=== PATIENT | female | born 1930 | race Two or more races ===

== ENCOUNTER 2016-06-08 13:36 | Inpatient (IN) | payer MEDICARE, OTHER ==
[~2016-06-08] VITALS: Ht 152.4 cm; Wt 59.9 kg
--- NOTE | 2016-06-08 13:45 | NUR ---
PT BIB RA S/P POSSIBLE SYNCOPAL EPISODE ACUSING FALL WITH EXTERNAL ROTATION OF L HIP AND SEVERE PAIN IN L HIP WHEN MOVED. UNABLE TO AMBULATE. PEDAL PULSES WNL. RESP EVEN UNLABORED. NO HEAD TRAUMA NOTED. A/OX4. NO PAIN WHEN AT REST. IN ER BED 09 ON MONITOR.
--- NOTE | 2016-06-08 13:51 | NUR ---
EMT AT BEDSIDE FOR EKG
--- NOTE | 2016-06-08 13:53 | NUR ---
CALLED NURSING SUP. FOR TELE BED
[2016-06-08 14:13] LABS: BASOPHILS # (AUTO) 0.1 /CMM (0.0-0.2); EOSINOPHILS # (AUTO) 0.3 /CMM (0.0-0.7); EOSINOPHILS % (AUTO) 5.9 % (0.0-6.0); HEMATOCRIT 33 % (33-45); HEMOGLOBIN 11.4 g/dL (11.5-14.8); LYMPHOCYTES # (AUTO) 0.9 /CMM (0.8-4.8); LYMPHOCYTES % (AUTO) 16.4 % (20.0-44.0); MEAN CORPUSCULAR HEMOGLOBIN 31 PG (26.0-33.0); MEAN CORPUSCULAR HGB CONC 34 g/dl (31.0-36.0); MEAN CORPUSCULAR VOLUME 92 fL (82-100); MONOCYTES # (AUTO) 0.4 /CMM (0.1-1.30); MONOCYTES % (AUTO) 6.5 % (2.0-12.0); NEUTROPHILS % (AUTO) 70.2 % (43.0-81.0); PLATELET COUNT (AUTO) 181 /CMM (150-450); RDW COEFFICIENT OF VARIATION 14.3 (11.5-15.0); RED BLOOD CELL COUNT(AUTO) 3.63 MIL/uL (4.0-5.2); WHITE BLOOD COUNT (AUTO) 5.7 K/uL (4.3-11.0)
[2016-06-08] MEDS ORDERED: ATOR10TA PO (14:23)
[2016-06-08] MEDS ORDERED: AMIO200T2 PO (14:23)
[2016-06-08] MEDS ORDERED: TICA90TA PO (14:23)
[2016-06-08] MEDS ORDERED: PANT40TA2 PO (14:23)
[2016-06-08] MEDS ORDERED: CARV12.52 PO (14:23)
[2016-06-08] MEDS ORDERED: ASPI-991 PO (14:23)
[2016-06-08] MEDS ORDERED: GLIP5TAB13 PO (14:23)
[2016-06-08] MEDS ORDERED: LEVO25TA9 PO (14:23)
[2016-06-08] MEDS ORDERED: SERT50TA12 PO (14:23)
[2016-06-08 14:24] LABS: CALCIUM, SERUM 7.9 mg/dL (8.5-10.1); CREATININE 1.1 mg/dL (0.6-1.3)
[2016-06-08 14:30] LABS: INR 1.1 (0.87-1.13); PROTHROMBIN TIME 11.5 SECS (9.5-12.7)
[2016-06-08] MEDS ORDERED: IV NS 0.9% 500 ML BAG IV ONE (14:30)
[2016-06-08 14:33] LABS: TROPONIN I 0.03 ng/mL (0.00-0.056)
[2016-06-08] MEDS ORDERED: ONDANSETRON HCL/PF 4 MG/2 ML VIAL ONE (14:58)
[2016-06-08] MEDS ORDERED: MORPHINE SULFATE INJ 2 MG/ML DISP.SYRIN ONE (14:58)
[2016-06-08] MEDS ORDERED: IV NS 0.9% 500 ML IV ONE (14:59)
[2016-06-08] MEDS ORDERED: IV SET PRIMARY 1 EA INFUS.SET MC ONE (14:59)
--- NOTE | 2016-06-08 15:01 | NUR ---
[facility] CALLED, GOVERNMENT DOCUMENTS LIBRARIAN, TRANSFERRED CALL TO
--- NOTE | 2016-06-08 15:01 | NUR ---
[facility] PAGED, DR.VU QUEVEDO SPRAYER AUTOMATIC SPRAY MACHINE
--- NOTE | 2016-06-08 15:18 | NUR ---
[facility] REPAGED
--- NOTE | 2016-06-08 15:22 | NUR ---
16fr jones cath placed and urine sample obtained
[2016-06-08 15:27] LABS: APPEARANCE,URINE Clear (CLEAR); BILIRUBIN,URINE Negative (NEGATIVE); BLOOD, URINE Negative Ery/uL (NEGATIVE); COLOR,URINE Dark (YELLOW); KETONES,URINE Trace (NEGATIVE); LEUKOCYTE ESTERASE ,URINE Negative (NEGATIVE); NITRITE, URINE Negative (NEGATIVE); PH,URINE 5.5 (5.0-8.0); PROTEIN,URINE Negative (NEGATIVE); UGLUCOSE Negative (NEGATIVE); UROBILINOGEN,URINE 0.2 EU/dL (0.2)
[2016-06-08] MEDS ORDERED: MORPHINE SULFATE INJ 2 MG/ML DISP.SYRIN IV ONE (15:30)
[2016-06-08] MEDS ORDERED: ONDANSETRON HCL/PF 4 MG/2 ML VIAL IVP ONE (15:30)
[2016-06-08 15:41] LABS: ADD URINE CULTURE NO; BACTERIA,URINE Rare /HPF (None Seen); RBC,URINE 0-2 /HPF (0-2); SQUAMOUS EPITHELIAL CELL,UR Rare /HPF (None Seen); WBC,URINE 0-2 /HPF (0-3)
--- NOTE | 2016-06-08 15:50 | NUR ---
PT TRANSPORTED TO RM 104 IN STABLE CONDITION VIA ACLS PROTOCOL
[2016-06-08 16:00] VITALS: BP 124/80
--- NOTE | 2016-06-08 16:00 | NUR ---
TELE1/BUSINESS DEVELOPMENT DIRECTOR TO TELE1 UNIT - 104 REPORT RECEIVED FROM CHARGE NURSE JARET FOR PT ADMITTED FOR LEFT HIP FRACTURE UNDER THE CARE OF DR. QUEVEDO. PT A/O X 3 ARMENIA SPEAKING, COMPLAINT OF PAIN RATED 7/10, REFUSED TO BE MOVED. ON ROOM AIR SATURATING @ 95%, LUNG SOUNDS CLEAR. ON TELE PACING SINUS RHYTHM, HR 60. IV SITE FLUSHED, PATENT WITH NO S/S OF INFECTION, HL. RODRIGUEZ CATHETER INTACT WITH MINIMAL YELLOW URINE OUTPUT. ADMITTING PROTOCOL ON GOING. FAMILY MEMBERS AT BEDSIDE, HELPING IN HISTORY TAKING. AWAITING FOR ADMITTING ORDERS. CL WITHIN REACHED AND SAFETY MAINTAINED. ON GOING MONITORING.
[2016-06-08] MEDS ORDERED: HYDROCODONE/APAP 5/325MG 1 EACH TABLET PO PRN (16:30)
[2016-06-08] MEDS ORDERED: MAGNESIUM HYDROXIDE 30 ML UDC PO PRN (16:30)
[2016-06-08] MEDS ORDERED: ONDANSETRON HCL/PF 4 MG/2 ML VIAL IVP PRN (16:30)
[2016-06-08] MEDS ORDERED: MORPHINE SULFATE INJ 2 MG/ML DISP.SYRIN IV PRN (16:30)
[2016-06-08] MEDS ORDERED: MAG HYDROX/AL HYDROX/SIMETH 30 ML UDC PO PRN (16:30)
[2016-06-08] MEDS ORDERED: ACETAMINOPHEN 325 MG TABLET PO PRN (16:30)
[2016-06-08] MEDS ORDERED: Z GUARD REMEDY 2 OZ OINT TP PRN (16:30)
[2016-06-08] MEDS ORDERED: ZOLPIDEM TARTRATE 5 MG TABLET PO PRN (16:30)
--- NOTE | 2016-06-08 16:38 | NUR ---
DAUGHTER AT BEDSIDE INSISTING THAT HER MOM TO CONTINUE TAKING CARDIAC MEDS, VERBALIZED " I RATHER DELAY SX THAN RISK MY MOM TO HAVE STROKE" DISCUSSED W/ DR. QUEVEDO FAMILY CONCERN W/ NEW ORDERS LEFT.FACILITATED TO CHANTELLE MARTINEZ RN.
[2016-06-08] MEDS ORDERED: glipiZIDE 5 MG TABLET PO SCH (17:00)
[2016-06-08] MEDS ORDERED: CARVEDILOL 12.5 MG TABLET PO SCH (17:00)
[2016-06-08 17:28] LABS: ANISOCYTOSIS 1+; BAND % (MANUAL) 3 % (0.0-5.0); EOSINOPHILS % (MANUAL) 8 % (0-4); LYMPHOCYTES % (MANUAL) 17 % (16-48); MONOCYTES % (MANUAL) 6 % (0-11.0); NEUTROPHILS % (MANUAL) 66 (42-76); PLATELET ESTIMATE ADEQUATE
[2016-06-08] MEDS ORDERED: TICAGRELOR 90 MG PO SCH (17:30)
--- NOTE | 2016-06-08 18:45 | NUR ---
DR. QUEVEDO NOTIFIED THAT DR. DON WANT TO DO SX TMRW AROUND 0900 AND WANTED CARDIAC CLEARANCE PRIOR TO SX.DAUGHTER NOTIFIED MADE AWARE OF SITUATION,WILL KEEP PT. NPO POSTMIDNIGHT.
--- NOTE | 2016-06-08 19:00 | NUR ---
TELE1/RN AM SHIFT END NOTES NO ACUTE CHANGE OF CONDITION NOTED SINCE PT WAS ADMITTED LATE IN THE AFTERNOON. NEEDS MET. PT ENDORSED TO PM NURSE TO CONTINUE CARE. CL WITHIN REACHED AND SAFETY MAINTAINED.
--- NOTE | 2016-06-08 19:45 | NUR ---
COMMUNITY RESOURCE CONSULTANT NURSE SPOKE TO OSCAR SOLE LEVELER, RE FAMILY REQUEST WANTS PTS TRANSFER TO [facility] , WORKING ON IT .
--- NOTE | 2016-06-08 19:46 | NUR ---
GREENHOUSE STAFF NOTES PER RN DAY SHIFT ,FAMILY WANTED THE PTS TO BE TRANSFER IN [facility] . WANT THE SURGERY TO BE DONE IN [place] AND SO WITH THE CHARGE ENTRY CLERK DR CASTANO TO FOLLOW THE PTS , RELAYED REQUEST TO DR EMY FONSECA , SAID MERARI , DR SIMPSON ALSO WAS INFORM THAT PTS IS GOING TO TRANSFER TO [facility], SPOKE TO DR DON(ORTHO SURGEON )MADE AWARE OF PTS FAMILY REQUEST RE PTS TRANSFER TO [facility] ALSO MERARI WITH IT.
--- NOTE | 2016-06-08 19:50 | NUR ---
RN INITIAL NOTES RECEIVED ENDORSEMENT FROM AM NURSE. PATIENT IN BED, SLEEPING COMFORTABLY. NO ACUTE DISTRESS AND DISCOMFORT. ON ROOM AIR WITH RESPIRATION EVEN AND UNLABORED. TELE SHOWS AV PACING WITH HR OF 66. R FOREARM G20, INTACT AND PATENT. NO C/O PAIN AND DISCOMFORT AT THIS TIME. SWELLING ON L HIP NOTED. PATIENT REPOSITIONED FOR COMFORT. NEEDS ANTICIPATED AND MET. SAFETY AND COMFORT ENSURED. BED ALARM IN PLACE, ROOM CLOSE TO NURSE'S STATION FOR CLOSE VISUAL MONITORING. BED IN LOW AND LOCKED POSITION. CALL LIGHT IN REACH. WILL MONITOR.
[2016-06-08 20:00] VITALS: BP 111/48
--- NOTE | 2016-06-08 22:10 | NUR ---
RN NOTES PATIENT TRANSFERRED TO [facility] PER FAMILY'S REQUESTS. PATIENT LEFT UNIT VIA GURNEY, ACCOMPANIED BY 2 FINANCIAL PLANNER WITH FAMILY AT BEDSIDE. PATIENT LEFT UNIT IN A STABLE CONDITION. NOT IN ANY DISTRESS. WITH F/C IN PLACE AND R FOREARM G22 INTACT. D/C PAPERS SIGNED BY PATIENT'S DTR, FILED IN CHART. BELONGING LIST DONE, IN CHART. PATIENT WITH HOME MEDICATIONS SURRENDERED TO THE PHARMACY, HOWEVER PHARMACY IS CLOSED AND UNABLE TO RETRIEVE PRIOR TO DISCHARGE. INFORMED PATIENT'S DAUGHTER, MITESH, OF THE HOME MEDICATION BEING IN THE PHARMACY; MITESH TO COME BACK TOMORROW AND OBTAIN MEDS FROM PHARMACY, VERBALIZED UNDERSTANDING. REPORT GIVEN TO DANITA FROM [facility]. NOTED.
[2016-06-09] MEDS ORDERED: LEVOTHYROXINE SODIUM 25 MCG TABLET PO SCH (07:30)
[2016-06-09] MEDS ORDERED: PANTOPRAZOLE 40 MG TABLET.DR PO SCH (07:30)
[2016-06-09] MEDS ORDERED: ASPIRIN EC 81 MG TABLET.DR PO SCH (09:00)
[2016-06-09] MEDS ORDERED: SERTRALINE HCL 50 MG TABLET PO SCH (09:00)
[2016-06-09] MEDS ORDERED: ATORVASTATIN 10 MG TABLET PO SCH (09:00)
[2016-06-09] MEDS ORDERED: AMIODARONE HCL 200 MG TABLET PO SCH (09:00)
== END 2016-06-08 23:33 | disposition short-term general hospital (02) | DRG 965 ==
LOC: ER 13:38 → TELE1 15:35
PROVIDERS: ADMIT Family Medicine; ATTEND Family Medicine
DX: S72.142A Displaced intertrochanteric fracture of left femur, initial encounter for closed fracture (principal); S32.592A Other specified fracture of left pubis, initial encounter for closed fracture; W19.XXXA Unspecified fall, initial encounter; K21.9 Gastro-esophageal reflux disease without esophagitis; I25.10 Atherosclerotic heart disease of native coronary artery without angina pectoris; F32.9 Major depressive disorder, single episode, unspecified; E78.5 Hyperlipidemia, unspecified; I10 Essential (primary) hypertension; Z98.61 Coronary angioplasty status; Y93.9 Activity, unspecified; Y92.009 Unspecified place in unspecified non-institutional (private) residence as the place of occurrence of the external cause; Y99.9 Unspecified external cause status
CPT/HCPCS: 36415; 70450-TC; 71010-TC; 72125-TC; 73510-TC; 80048-TC; 81000-TC; 84484-TC; 85025-TC; 85730-TC; 87081-TC; A4606; J2270; J2405; J7040; Z7610

== ENCOUNTER 2016-11-19 19:10 | Inpatient (IN) | payer MEDICARE, OTHER ==
[~2016-11-19] VITALS: Ht 154.9 cm; Wt 54.4 kg
[~2016-11-19 19:10] MED LIST: AMIO200T2 PO; ASPI-991 PO; ATOR10TA PO; CARV12.52 PO; GLIP5TAB13 PO; LEVO25TA9 PO; PANT40TA2 PO; SERT50TA12 PO; TICA90TA PO
[2016-11-19 19:57] LABS: BASOPHILS # (AUTO) 0.2 /CMM (0.0-0.2); EOSINOPHILS % (AUTO) 0.1 % (0.0-6.0); HEMATOCRIT 39 % (33-45); HEMOGLOBIN 12.9 g/dL (11.5-14.8); LYMPHOCYTES # (AUTO) 0.9 /CMM (0.8-4.8); LYMPHOCYTES % (AUTO) 7.8 % (20.0-44.0); MEAN CORPUSCULAR HEMOGLOBIN 32 PG (26.0-33.0); MEAN CORPUSCULAR HGB CONC 33 g/dl (31.0-36.0); MEAN CORPUSCULAR VOLUME 95 fL (82-100); MONOCYTES # (AUTO) 0.6 /CMM (0.1-1.30); MONOCYTES % (AUTO) 5.3 % (2.0-12.0); NEUTROPHILS # (AUTO) 10.3 /CMM (1.8-8.9); NEUTROPHILS % (AUTO) 84.8 % (43.0-81.0); PLATELET COUNT (AUTO) 197 /CMM (150-450); RDW COEFFICIENT OF VARIATION 14.8 (11.5-15.0); RED BLOOD CELL COUNT(AUTO) 4.07 MIL/uL (4.0-5.2)
[2016-11-19] MEDS ORDERED: IV NS 0.9% 500 ML BAG IV ONE (20:00)
--- NOTE | 2016-11-19 20:04 | NUR ---
TELE 309.2
[2016-11-19 20:28] LABS: APPEARANCE,URINE Clear (CLEAR); BILIRUBIN,URINE Negative (NEGATIVE); BLOOD, URINE Trace-lysed Ery/uL (NEGATIVE); COLOR,URINE Yellow (YELLOW); KETONES,URINE Negative (NEGATIVE); LEUKOCYTE ESTERASE ,URINE Trace (NEGATIVE); NITRITE, URINE Negative (NEGATIVE); PH,URINE 5.5 (5.0-8.0); PROTEIN,URINE Negative (NEGATIVE); UGLUCOSE Negative (NEGATIVE)
--- NOTE | 2016-11-19 20:29 | NUR ---
jones inserted; urine sent
[2016-11-19 20:30] LABS: CALCIUM, SERUM 8.2 mg/dL (8.5-10.1); CARBON DIOXIDE 26 mmol/L (21-32); CHLORIDE 94 mmol/L (98-107); CREATININE 1.2 mg/dL (0.6-1.3); GLUCOSE 172 mg/dL (74-106); SODIUM SERUM 133 mmol/L (136-145); UREA NITROGEN, BLOOD 21 mg/dL (7-18)
[2016-11-19 20:31] LABS: POTASSIUM 2.8 mmol/L (3.5-5.1)
[2016-11-19 20:58] LABS: BACTERIA,URINE Many /HPF (None Seen); RBC,URINE 0-2 /HPF (0-2); SQUAMOUS EPITHELIAL CELL,UR Few /HPF (None Seen)
[2016-11-19] MEDS ORDERED: POTASSIUM CHLORIDE 20 MEQ TAB.PRT.SR PO ONE ×2 (21:00→21:16)
--- NOTE | 2016-11-19 21:03 | NUR ---
Pt's Granddaughter translated for pt, c/o generalized weakness, started today, also c/o diarrhea x 1 today. Pt denies dizziness, n/v, CP, SOB, no other complaints, no distress noted.
--- NOTE | 2016-11-19 21:09 | NUR ---
PAGED LOGGING EQUIPMENT MECHANIC PANEL
[2016-11-19] MEDS ORDERED: POTASSIUM CL. PREMIX PERIPHER. 50 ML ONE (21:16)
[2016-11-19] MEDS: POTASSIUM CL. PREMIX PERIPHER. 50 ML IV SCH (21:28)
[2016-11-19 21:32] LABS: ALANINE AMINOTRANSFERASE 213 U/L (12-78); ALBUMIN 2.7 g/dL (3.4-5.0); ALKALINE PHOSPHATASE 119 U/L (46-116); ASPARTATE AMINOTRANSFERASE 221 U/L (15-37); BILIRUBIN,DIRECT 0.5 mg/dL (0.0-0.2); BILIRUBIN,TOTAL 1.1 mg/dL (0.2-1.0)
--- NOTE | 2016-11-19 21:35 | NUR ---
REPORT GIVEN TO LORE MCLAUGHLIN FOR BROOKE
--- NOTE | 2016-11-19 21:36 | NUR ---
TRANSPORTED PT TO TELE BED WITHOUT INCIDENT
[2016-11-19 21:45] VITALS: BP 145/67
--- NOTE | 2016-11-19 21:45 | NUR ---
RN ADMITTING NOTES Pt ARRIVED TO FLOOR VIA GURNEY. GRANDDAUGHTER AT BEDSIDE. Pt IS A/OX3, NORWEGIAN/ESTONIAN SPEAKING. Pt IS AWAKE. NO S/S OF ACUTE DISTRESS OR SOB NOTED. IV ACCESS ON LFA #20G. SAFETY MEASURES IN PLACE. BED LOW, LOCKED, HOB ELEVATED, SIDE RAILS UP, CALL LIGHT AND BEDSIDE TABLE WITHIN REACH. WILL CONTINUE TO MONITOR Pt THROUGHOUT THE NIGHT FOR SAFETY.
[2016-11-19 22:00] VITALS: BP 115/67
[2016-11-19] MEDS ORDERED: MAGNESIUM HYDROXIDE 30 ML UDC PO PRN (22:30)
[2016-11-19] MEDS: CARVEDILOL 12.5 MG TABLET PO SCH (22:30)
[2016-11-19] MEDS ORDERED: ACETAMINOPHEN 325 MG TABLET PO PRN (22:30)
[2016-11-19] MEDS ORDERED: Z GUARD REMEDY 2 OZ OINT TP PRN (22:30)
[2016-11-19] MEDS ORDERED: IV NS 0.9% 1,000 ML IV PRN (22:30)
[2016-11-19] MEDS ORDERED: MAG HYDROX/AL HYDROX/SIMETH 30 ML UDC PO PRN (22:30)
[2016-11-19] MEDS ORDERED: CEFTRIAXONE 1 G VIAL IM SCH (22:30)
[2016-11-19] MEDS ORDERED: ONDANSETRON HCL/PF 4 MG/2 ML VIAL IVP PRN (22:30)
[2016-11-19] MEDS ORDERED: HYDROCODONE/APAP 5/325MG 1 EACH TABLET PO PRN (22:30)
[2016-11-19] MEDS ORDERED: CEFTRIAXONE 1 G VIAL ONE (23:18)
[2016-11-19] MEDS ORDERED: POTASSIUM CL. PREMIX PERIPHER. 150 ML ONE (23:18)
[2016-11-19] MEDS ORDERED: CARVEDILOL 12.5 MG TABLET ONE (23:19)
[2016-11-19] MEDS ORDERED: CEFTRIAXONE 1 G in IV D5W 50 ML IV SCH (23:30)
[2016-11-20] MEDS: POTASSIUM CL. PREMIX PERIPHER. 50 ML IV SCH ×3 (01:52→02:12)
--- NOTE | 2016-11-20 06:40 | NUR ---
RN CLOSING NOTES NO SIGNIFICANT CHANGES NOTED DURING THE SHIFT. ALL NEEDS MET AND ATTENDED TO. NO S/S OF ACUTE DISTRESS OR SOB NOTED DURING THE NIGHT. SAFETY MEASURES IN PLACE. WILL ENDORSE TO DAYSHIFT RN FOR Pt's BROOKE. TELE READING 65 AV PACING.
[2016-11-20 07:06] LABS: BASOPHILS % (AUTO) 0.3 % (0.0-2.0); EOSINOPHILS # (AUTO) 0.1 /CMM (0.0-0.7); EOSINOPHILS % (AUTO) 0.7 % (0.0-6.0); HEMATOCRIT 37 % (33-45); HEMOGLOBIN 12.4 g/dL (11.5-14.8); LYMPHOCYTES % (AUTO) 11.9 % (20.0-44.0); MEAN CORPUSCULAR HEMOGLOBIN 32 PG (26.0-33.0); MEAN CORPUSCULAR HGB CONC 33 g/dl (31.0-36.0); MEAN CORPUSCULAR VOLUME 97 fL (82-100); MONOCYTES % (AUTO) 11.9 % (2.0-12.0); NEUTROPHILS # (AUTO) 6.6 /CMM (1.8-8.9); NEUTROPHILS % (AUTO) 75.2 % (43.0-81.0); PLATELET COUNT (AUTO) 176 /CMM (150-450); RED BLOOD CELL COUNT(AUTO) 3.85 MIL/uL (4.0-5.2); WHITE BLOOD COUNT (AUTO) 8.8 K/uL (4.3-11.0)
[2016-11-20 07:29] LABS: ALANINE AMINOTRANSFERASE 195 U/L (12-78); ALBUMIN 2.4 g/dL (3.4-5.0); ALKALINE PHOSPHATASE 111 U/L (46-116); ASPARTATE AMINOTRANSFERASE 173 U/L (15-37); BILIRUBIN,TOTAL 0.7 mg/dL (0.2-1.0); CALCIUM, SERUM 8.1 mg/dL (8.5-10.1); CARBON DIOXIDE 29 mmol/L (21-32); CHLORIDE 100 mmol/L (98-107); GLUCOSE 146 mg/dL (74-106); MAGNESIUM 1.7 mg/dL (1.8-2.4); PHOSPHORUS 2.2 mg/dL (2.5-4.9); SODIUM SERUM 136 mmol/L (136-145); TOTAL PROTEIN, SERUM 6.4 g/dL (6.4-8.2); UREA NITROGEN, BLOOD 20 mg/dL (7-18)
--- NOTE | 2016-11-20 07:30 | NUR ---
AM RN NOTE Received patient sleeping comfortably in her bed, no acute distress noted. No SOB noted resp even and non-labored. IV sites intact and patent. Bed in low locked position. Will continue to monitor.
[2016-11-20 07:35] LABS: CHOLESTEROL 85 mg/dL (<200); HDL CHOLESTEROL 31 mg/dL (40-60); LDL 36 mg/dL (0-99); THYROID STIMULATING HORMONE 2.576 uIU/mL (0.358-3.74); TRIGLYCERIDES 85 mg/dL (30-150)
[2016-11-20 08:00] VITALS: BP 108/59
[2016-11-20] MEDS ORDERED: HEPARIN SODIUM, PORCINE 5000 UNITS/1 ML VIAL SQ SCH (09:00)
[2016-11-20] MEDS ORDERED: ATORVASTATIN 10 MG TABLET PO SCH (09:00)
[2016-11-20] MEDS ORDERED: AMIODARONE HCL 200 MG TABLET PO SCH (09:00)
[2016-11-20] MEDS: ASPIRIN EC 81 MG TABLET.DR PO SCH (09:02)
[2016-11-20] MEDS: SERTRALINE HCL 50 MG TABLET PO SCH (09:02)
[2016-11-20] MEDS: glipiZIDE 5 MG TABLET PO SCH ×2 (09:02→16:18)
[2016-11-20] MEDS: LEVOTHYROXINE SODIUM 25 MCG TABLET PO SCH (09:03)
[2016-11-20] MEDS: PANTOPRAZOLE 40 MG TABLET.DR PO SCH (09:03)
[2016-11-20] MEDS: CARVEDILOL 12.5 MG TABLET PO SCH ×2 (09:04→16:20)
[2016-11-20] MEDS ORDERED: Magnesium 1GM/D5W 100ML PREMIX PIGGYBACK IV ONE (09:30)
[2016-11-20] MEDS: BRILINTA 90 MG PO SCH (10:12)
--- NOTE | 2016-11-20 12:30 | NUR ---
AM RN NOTE D/C'd tele per Dr. Morrison (Marketing Automation Manager) and current status med-surg. Pt denies any pain or discomfort at this time. F/C intact and patent, draining yellow colored urine.
[2016-11-20 13:06] VITALS: BP 115/62
[2016-11-20] MEDS ORDERED: K PHOS NEUTRAL 250 MG TABLET PO ONE (15:00)
[2016-11-20] MEDS: TICAGRELOR 90 MG TABLET PO SCH (16:20)
[2016-11-20 16:28] VITALS: BP 135/69
--- NOTE | 2016-11-20 18:30 | NUR ---
AM RN NOTE Patient resting in her bed, no acute distress noted. IV sites intact and patent. Will endorse care to next shift.
--- NOTE | 2016-11-20 19:30 | NUR ---
MS RN NOTE RECEIVED PATIENT AWAKE AND ALERT IN BED. NO PAIN OR DISTRESS NOTED. IV SITE INTACT, WITH NO REDNESS OR INFILTRATION NOTED. SIDE RAILS UP, CALL LIGHT WITHIN REACH. WILL CONTINUE TO MONITOR.
[2016-11-20 20:00] VITALS: BP 132/65
[2016-11-20 22:00] VITALS: BP 132/65
[2016-11-20] MEDS ORDERED: CEFTRIAXONE 1 G in IV D5W 50 ML IV SCH (23:00)
--- NOTE | 2016-11-21 06:21 | NUR ---
MS RN NOTE PATIENT STABLE. NO DISTRESS NOTED. IV SITE INTACT, WITH FLUIDS RUNNING ORDERED. ALL NEEDS MET AND ATTENDED TO. WILL ENDORSE TO DAY SHIFT FOR BROOKE.
[2016-11-21] MEDS: LEVOTHYROXINE SODIUM 25 MCG TABLET PO SCH (06:39)
[2016-11-21] MEDS: PANTOPRAZOLE 40 MG TABLET.DR PO SCH (06:39)
[2016-11-21 07:25] LABS: CARBON DIOXIDE 24 mmol/L (21-32); CHLORIDE 102 mmol/L (98-107); CREATININE 0.7 mg/dL (0.6-1.3); GLUCOSE 70 mg/dL (74-106); PHOSPHORUS 3.1 mg/dL (2.5-4.9); POTASSIUM 3.4 mmol/L (3.5-5.1); SODIUM SERUM 137 mmol/L (136-145); UREA NITROGEN, BLOOD 17 mg/dL (7-18)
[2016-11-21 08:00] VITALS: BP 129/68
--- NOTE | 2016-11-21 08:16 | NUR ---
MS/RN OPENING NOTE PATIENT RECEIVED IN BED IN STABLE CONDITION. A/O X 3. CITIZEN OF [place] SPEAKING. NO SIGNS OF ACUTE DISTRESS. NO COMPLAIN OF PAIN OR DISCOMFORT. ALL NEEDS ATTENDED TO. CALL LIGHT WITHIN REACH. WILL CONTINUE TO MONITOR TO ENSURE SAFETY.
[2016-11-21] MEDS: BRILINTA 90 MG PO SCH (08:42)
[2016-11-21] MEDS: glipiZIDE 5 MG TABLET PO SCH ×2 (08:43→17:04)
[2016-11-21] MEDS: CARVEDILOL 12.5 MG TABLET PO SCH ×2 (08:43→17:04)
[2016-11-21] MEDS: ASPIRIN EC 81 MG TABLET.DR PO SCH (08:43)
[2016-11-21] MEDS: SERTRALINE HCL 50 MG TABLET PO SCH (08:43)
[2016-11-21] MEDS: TICAGRELOR 90 MG TABLET PO SCH ×2 (08:44→17:04)
[2016-11-21] MEDS ORDERED: POTASSIUM CHLORIDE 20 MEQ TAB.PRT.SR PO ONE (09:30)
--- NOTE | 2016-11-21 09:45 | NUR ---
MS/RN SEEN BY MARK RUIZ PATIENT SEEN BY ISIDRO FLORES WITH ORDERS OF POTASSIUM CL. 20 MEQ PO AND DISCHARGE TODAY. PRIOR DISCHARGE PATIENT TO BE EVALUATED BY PT.
--- NOTE | 2016-11-21 12:04 | NUR ---
MS/RN DC RODRIGUEZ F/C REMOVED. AWAITING FOR PATIENT TO VOID.
--- NOTE | 2016-11-21 12:30 | NUR ---
MS/RN SPOKE WITH MITESH SPOKE WITH PATIENT GRAND DAUGHTER MITESH AND MADE AWARE REGARDING PATIENT DISCHARGE. PER MITESH SHE WILL COME TELEVISION PROGRAM DIRECTOR THE PATIENT AT 7PM.
[2016-11-21 16:00] VITALS: BP 129/80
--- NOTE | 2016-11-21 16:38 | NUR ---
MS/RN VOIDED PATIENT VOIDED IN BEDSIDE COMMODE. NO COMPLAIN OF PAIN OF DISCOMFORT. NO FOUL ODOR NOTED. URINE NOTED WITH YELLOW, CLEAR COLOR.
--- NOTE | 2016-11-21 17:00 | NUR ---
MS/RN PRESCRIPTION PATIENT PRESCRIPTION FAXED TO PATIENT'S PHARMACY [facility] FAX # [phone] PH # [phone]. CONFIRMED WITH MARY JANE FROM PHARMACY REGARDING RECEIVING OF PRESCRIPTION. PER MARY JANE, SHE RECEIVED THE PRESCRIPTION.
[2016-11-21 17:04] VITALS: BP 129/80
--- NOTE | 2016-11-21 19:13 | NUR ---
MS/PROJECT STRUCTURAL ENGINEER PATIENT DISCHARGE HOME IN STABLE CONDITION. A/O X 3. MEXICAN SPEAKING. NO SIGNS OF ACUTE DISTRESS. NO COMPLAIN OF PAIN OR DISCOMFORT. DISCHARGE INSTRUCTIONS AND TEACHING PROVIDED TO PATIENT'S RESPONSIBLE REPUBLICAN GRAND DAUGHTER MITESH. ALSO MADE AWARE TO FOLLOW UP WITH PRIMARY CARE PHYSICIAN WITHIN ONE WEEK. ALL NEEDS ATTENDED TO. NAME BAND AND IV LINE REMOVED. LEFT VIA PRIVATE CARE ACCOMPANIED BY GRAND DAUGHTER.
== END 2016-11-21 19:00 | disposition home or self-care (01) | DRG 871 ==
LOC: ER 19:12 → TELE 21:35 → MED 11-20 13:39
PROVIDERS: ADMIT Nurse Practitioner Acute Care; ATTEND Nurse Practitioner Acute Care
DX: A41.9 Sepsis, unspecified organism (principal); N17.0 Acute kidney failure with tubular necrosis; G93.41 Metabolic encephalopathy; E44.0 Moderate protein-calorie malnutrition; N39.0 Urinary tract infection, site not specified; I48.91 Unspecified atrial fibrillation; I10 Essential (primary) hypertension; E88.09 Other disorders of plasma-protein metabolism, not elsewhere classified; E11.9 Type 2 diabetes mellitus without complications; B96.20 Unspecified Escherichia coli [E. coli] as the cause of diseases classified elsewhere; E83.42 Hypomagnesemia; E03.9 Hypothyroidism, unspecified; E80.6 Other disorders of bilirubin metabolism; I25.10 Atherosclerotic heart disease of native coronary artery without angina pectoris; K21.9 Gastro-esophageal reflux disease without esophagitis; Z79.84 Long term (current) use of oral hypoglycemic drugs; Z95.5 Presence of coronary angioplasty implant and graft; R74.0 Nonspecific elevation of levels of transaminase and lactic acid dehydrogenase [LDH]; Z68.22 Body mass index [BMI] 22.0-22.9, adult; Z95.0 Presence of cardiac pacemaker; E87.6 Hypokalemia; K80.20 Calculus of gallbladder without cholecystitis without obstruction; E78.5 Hyperlipidemia, unspecified; F32.9 Major depressive disorder, single episode, unspecified; R65.20 Severe sepsis without septic shock
CPT/HCPCS: 36415; 70450-TC; 71010-TC; 76705-TC; 80048-TC; 80053-TC; 80061-TC; 80076-TC; 81000-TC; 83735-TC; 84100-TC; 84443-TC; 85025-TC; 87081-TC; 87086-TC; 87186-TC; A4606; J0696; J3475; J3480; J7030; J7040; J7050; J7060; Z7610

== ENCOUNTER 2017-02-16 01:15 | Inpatient (IN) | payer MEDICARE, OTHER ==
[~2017-02-16] VITALS: Ht 157.5 cm; Wt 47.2 kg
[~2017-02-16 01:15] MED LIST changes: +ASPI-1152 PO; -ASPI-991 PO
[2017-02-16] MEDS ORDERED: ONDANSETRON HCL/PF 4 MG/2 ML VIAL ONE (01:45)
[2017-02-16] MEDS ORDERED: ONDANSETRON HCL/PF 4 MG/2 ML VIAL IVP ONE (02:00)
[2017-02-16] MEDS ORDERED: IV NS 0.9% 500 ML BAG IV ONE (02:00)
[2017-02-16 02:04] LABS: BASOPHILS # (AUTO) 0.2 /CMM (0.0-0.2); BASOPHILS % (AUTO) 1.5 % (0.0-2.0); EOSINOPHILS # (AUTO) 0.1 /CMM (0.0-0.7); EOSINOPHILS % (AUTO) 0.7 % (0.0-6.0); HEMATOCRIT 35 % (33-45); HEMOGLOBIN 12.1 g/dL (11.5-14.8); LYMPHOCYTES # (AUTO) 0.3 /CMM (0.8-4.8); LYMPHOCYTES % (AUTO) 2.3 % (20.0-44.0); MEAN CORPUSCULAR HEMOGLOBIN 33 PG (26.0-33.0); MEAN CORPUSCULAR HGB CONC 35 g/dl (31.0-36.0); MEAN CORPUSCULAR VOLUME 95 fL (82-100); MONOCYTES # (AUTO) 0.4 /CMM (0.1-1.30); MONOCYTES % (AUTO) 2.5 % (2.0-12.0); NEUTROPHILS # (AUTO) 14.1 /CMM (1.8-8.9); PLATELET COUNT (AUTO) 146 /CMM (150-450); RDW COEFFICIENT OF VARIATION 15.8 (11.5-15.0); RED BLOOD CELL COUNT(AUTO) 3.68 MIL/uL (4.0-5.2); WHITE BLOOD COUNT (AUTO) 15.1 K/uL (4.3-11.0)
[2017-02-16 02:21] LABS: CALCIUM, SERUM 8.8 mg/dL (8.5-10.1); CARBON DIOXIDE 23 mmol/L (21-32); CHLORIDE 95 mmol/L (98-107); GLUCOSE 192 mg/dL (74-106); POTASSIUM 3.7 mmol/L (3.5-5.1); SODIUM SERUM 132 mmol/L (136-145); UREA NITROGEN, BLOOD 51 mg/dL (7-18)
[2017-02-16 02:27] LABS: ALANINE AMINOTRANSFERASE 465 U/L (12-78); ALBUMIN 2.9 g/dL (3.4-5.0); ALKALINE PHOSPHATASE 220 U/L (46-116); BILIRUBIN,DIRECT 0.7 mg/dL (0.0-0.2); BILIRUBIN,TOTAL 1.5 mg/dL (0.2-1.0); LIPASE 243 U/L (73-393); TOTAL PROTEIN, SERUM 7.3 g/dL (6.4-8.2)
[2017-02-16 02:29] LABS: TROPONIN I 0.043 ng/mL (0.00-0.056)
[2017-02-16 02:41] LABS: ASPARTATE AMINOTRANSFERASE 426 U/L (15-37)
[2017-02-16] MEDS ORDERED: ASPIRIN 81 MG TAB.CHEW PO ONE (05:30)
[2017-02-16] MEDS ORDERED: PIPERACILLIN /TAZOBACTAM 3.375 G VIAL IV ONE (05:30)
[2017-02-16] MEDS ORDERED: IV NS 0.9% 1,000 ML BAG IV ONE ×2 (05:30→12:30)
[2017-02-16] MEDS ORDERED: ASPIRIN 81 MG TAB.CHEW ONE (05:30)
[2017-02-16] MEDS ORDERED: PIPERACILLIN /TAZOBACTAM 3.375 G in IV D5W 50 ML IV ONE (05:30)
[2017-02-16] MEDS ORDERED: MULT1TAB73 PO (15:52)
[2017-02-16] MEDS ORDERED: SPIR25TA4 PO (15:52)
[2017-02-16] MEDS ORDERED: FURO40SO5 PO (15:52)
[2017-02-16 16:00] VITALS: BP 113/50
[2017-02-16] MEDS ORDERED: IV NS 0.9% 1,000 ML IV PRN (18:56)
[2017-02-16] MEDS ORDERED: Z GUARD REMEDY 2 OZ OINT TP PRN (19:00)
[2017-02-16] MEDS ORDERED: ONDANSETRON HCL/PF 4 MG/2 ML VIAL IVP PRN (19:00)
[2017-02-16] MEDS ORDERED: ACETAMINOPHEN 325 MG TABLET PO PRN (19:00)
[2017-02-16] MEDS ORDERED: MORPHINE SULFATE INJ 4 MG/ML DISP.SYRIN IV PRN (19:30)
[2017-02-16 20:00] VITALS: BP 99/44
[2017-02-16] MEDS ORDERED: ATORVASTATIN 10 MG TABLET PO SCH (22:00)
[2017-02-17 03:43] VITALS: BP 105/48
[2017-02-17 08:00] VITALS: BP 102/54
[2017-02-17 08:02] LABS: BASOPHILS % (AUTO) 0.3 % (0.0-2.0); EOSINOPHILS # (AUTO) 0.2 /CMM (0.0-0.7); EOSINOPHILS % (AUTO) 2.8 % (0.0-6.0); HEMATOCRIT 31 % (33-45); HEMOGLOBIN 10.7 g/dL (11.5-14.8); LYMPHOCYTES # (AUTO) 0.7 /CMM (0.8-4.8); LYMPHOCYTES % (AUTO) 7.5 % (20.0-44.0); MEAN CORPUSCULAR HEMOGLOBIN 34 PG (26.0-33.0); MEAN CORPUSCULAR HGB CONC 34 g/dl (31.0-36.0); MEAN CORPUSCULAR VOLUME 97 fL (82-100); MONOCYTES # (AUTO) 0.6 /CMM (0.1-1.30); MONOCYTES % (AUTO) 7.3 % (2.0-12.0); NEUTROPHILS # (AUTO) 7.2 /CMM (1.8-8.9); NEUTROPHILS % (AUTO) 82.1 % (43.0-81.0); PLATELET COUNT (AUTO) 128 /CMM (150-450); RDW COEFFICIENT OF VARIATION 16.2 (11.5-15.0); RED BLOOD CELL COUNT(AUTO) 3.19 MIL/uL (4.0-5.2); WHITE BLOOD COUNT (AUTO) 8.7 K/uL (4.3-11.0)
[2017-02-17 08:24] LABS: CHOLESTEROL 49 mg/dL (<200); HDL CHOLESTEROL 24 mg/dL (40-60); LDL 11 mg/dL (0-99); THYROID STIMULATING HORMONE 1.662 uIU/mL (0.358-3.74); TRIGLYCERIDES 55 mg/dL (30-150)
[2017-02-17] MEDS: ASPIRIN EC 81 MG TABLET.DR PO SCH (08:41)
[2017-02-17] MEDS: LEVOTHYROXINE SODIUM 25 MCG TABLET PO SCH (08:41)
[2017-02-17] MEDS: PANTOPRAZOLE 40 MG TABLET.DR PO SCH (08:41)
[2017-02-17] MEDS: SERTRALINE HCL 50 MG TABLET PO SCH (08:41)
[2017-02-17] MEDS: CARVEDILOL 12.5 MG TABLET PO SCH ×2 (08:42→17:00)
[2017-02-17] MEDS: SPIRONOLACTONE 25 MG TABLET PO SCH (08:42)
[2017-02-17] MEDS ORDERED: AMIODARONE HCL 200 MG TABLET PO SCH (09:00)
[2017-02-17 09:17] LABS: ALANINE AMINOTRANSFERASE 768 U/L (12-78); ALBUMIN 2.2 g/dL (3.4-5.0); ALKALINE PHOSPHATASE 169 U/L (46-116); ASPARTATE AMINOTRANSFERASE 997 U/L (15-37); BILIRUBIN,TOTAL 1.4 mg/dL (0.2-1.0); CALCIUM, SERUM 7.9 mg/dL (8.5-10.1); CARBON DIOXIDE 23 mmol/L (21-32); CHLORIDE 107 mmol/L (98-107); CREATININE 1.7 mg/dL (0.6-1.3); GLUCOSE 84 mg/dL (74-106); MAGNESIUM 1.8 mg/dL (1.8-2.4); PHOSPHORUS 3.2 mg/dL (2.5-4.9); POTASSIUM 3.4 mmol/L (3.5-5.1); SODIUM SERUM 142 mmol/L (136-145); TOTAL PROTEIN, SERUM 5.7 g/dL (6.4-8.2); UREA NITROGEN, BLOOD 40 mg/dL (7-18)
[2017-02-17] MEDS ORDERED: POTASSIUM CHLORIDE 10 MEQ TABLET.SA PO ONE (11:30)
[2017-02-17 16:00] VITALS: BP 121/61
[2017-02-17 20:00] VITALS: BP 102/48
[2017-02-17] MEDS ORDERED: PIPERACILLIN /TAZOBACTAM 3.375 G VIAL IV ONE ×2 (23:33→23:34)
[2017-02-18] MEDS: PIPERACILLIN /TAZOBACTAM 3.375 G in IV D5W 50 ML IV SCH ×2 (00:22→05:47)
[2017-02-18 04:09] VITALS: BP 107/51
[2017-02-18 08:00] VITALS: BP 123/51
[2017-02-18] MEDS: SERTRALINE HCL 50 MG TABLET PO SCH (08:55)
[2017-02-18] MEDS: LEVOTHYROXINE SODIUM 25 MCG TABLET PO SCH (08:55)
[2017-02-18] MEDS: PANTOPRAZOLE 40 MG TABLET.DR PO SCH (08:56)
[2017-02-18] MEDS: CARVEDILOL 12.5 MG TABLET PO SCH ×2 (08:57→17:03)
[2017-02-18] MEDS: ASPIRIN EC 81 MG TABLET.DR PO SCH (08:57)
[2017-02-18] MEDS: SPIRONOLACTONE 25 MG TABLET PO SCH (08:57)
[2017-02-18 09:50] LABS: BASOPHILS % (AUTO) 0.4 % (0.0-2.0); EOSINOPHILS # (AUTO) 0.5 /CMM (0.0-0.7); EOSINOPHILS % (AUTO) 6.4 % (0.0-6.0); HEMATOCRIT 31 % (33-45); HEMOGLOBIN 10.6 g/dL (11.5-14.8); LYMPHOCYTES # (AUTO) 0.9 /CMM (0.8-4.8); LYMPHOCYTES % (AUTO) 12.2 % (20.0-44.0); MEAN CORPUSCULAR HEMOGLOBIN 33 PG (26.0-33.0); MEAN CORPUSCULAR HGB CONC 34 g/dl (31.0-36.0); MEAN CORPUSCULAR VOLUME 97 fL (82-100); MONOCYTES # (AUTO) 0.6 /CMM (0.1-1.30); MONOCYTES % (AUTO) 7.7 % (2.0-12.0); NEUTROPHILS # (AUTO) 5.6 /CMM (1.8-8.9); NEUTROPHILS % (AUTO) 73.3 % (43.0-81.0); PLATELET COUNT (AUTO) 142 /CMM (150-450); RDW COEFFICIENT OF VARIATION 16.1 (11.5-15.0); RED BLOOD CELL COUNT(AUTO) 3.21 MIL/uL (4.0-5.2); WHITE BLOOD COUNT (AUTO) 7.6 K/uL (4.3-11.0)
[2017-02-18 11:03] LABS: ALANINE AMINOTRANSFERASE 560 U/L (12-78); ALKALINE PHOSPHATASE 169 U/L (46-116); ASPARTATE AMINOTRANSFERASE 503 U/L (15-37); BILIRUBIN,TOTAL 0.9 mg/dL (0.2-1.0); CALCIUM, SERUM 7.6 mg/dL (8.5-10.1); CARBON DIOXIDE 25 mmol/L (21-32); CHLORIDE 109 mmol/L (98-107); CREATININE 1.6 mg/dL (0.6-1.3); GLUCOSE 143 mg/dL (74-106); LIPASE 105 U/L (73-393); MAGNESIUM 1.7 mg/dL (1.8-2.4); PHOSPHORUS 1.6 mg/dL (2.5-4.9); POTASSIUM 3.2 mmol/L (3.5-5.1); SODIUM SERUM 144 mmol/L (136-145); TOTAL PROTEIN, SERUM 5.4 g/dL (6.4-8.2); UREA NITROGEN, BLOOD 30 mg/dL (7-18)
[2017-02-18] MEDS: MUPIROCIN OINT 2% 22 GM TUBE SCH ×2 (12:59→21:06)
[2017-02-18] MEDS: PIPERACILLIN /TAZOBACTAM 2.25 G in IV D5W 50 ML IV SCH ×2 (12:59→18:20)
[2017-02-18 16:00] VITALS: BP 115/59
[2017-02-18] MEDS ORDERED: K PHOS NEUTRAL 250 MG TABLET PO ONE (16:00)
[2017-02-18] MEDS ORDERED: Magnesium 1GM/D5W 100ML PREMIX 100 ML IV SCH (16:05)
[2017-02-18] MEDS ORDERED: POTASSIUM CHLORIDE 20 MEQ POWDER PACKET PO SCH (16:30)
[2017-02-18 17:35] LABS: CREATININE, URINE 53.1 MG/DL (30.0-125.0); URINE TOTAL PROTEIN 59.5 mg/dL (0-11.9)
[2017-02-18 18:25] LABS: APPEARANCE,URINE SL CLOUDY (CLEAR); BILIRUBIN,URINE NEGATIVE (NEGATIVE); BLOOD, URINE 2+ Ery/uL (NEGATIVE); COLOR,URINE YELLOW (YELLOW); KETONES,URINE NEGATIVE (NEGATIVE); LEUKOCYTE ESTERASE ,URINE 1+ (NEGATIVE); NITRITE, URINE NEGATIVE (NEGATIVE); PROTEIN,URINE TRACE mg/dl (NEGATIVE); UGLUCOSE NEGATIVE (NEGATIVE)
[2017-02-18 18:55] LABS: BACTERIA,URINE Few /HPF (None Seen); SQUAMOUS EPITHELIAL CELL,UR Few /HPF (None Seen); URIC ACID CRYSTALS,URINE Few /HPF (None Seen)
[2017-02-18 20:00] VITALS: BP 110/46
[2017-02-18 20:00] LABS: EOSINOPHIL,URINE None Seen
[2017-02-19] MEDS: PIPERACILLIN /TAZOBACTAM 2.25 G in IV D5W 50 ML IV SCH ×5 (01:06→23:51)
[2017-02-19 04:00] VITALS: BP 105/60
[2017-02-19 06:49] LABS: BASOPHILS % (AUTO) 0.4 % (0.0-2.0); EOSINOPHILS # (AUTO) 0.5 /CMM (0.0-0.7); EOSINOPHILS % (AUTO) 7.5 % (0.0-6.0); HEMATOCRIT 30 % (33-45); HEMOGLOBIN 10.2 g/dL (11.5-14.8); LYMPHOCYTES # (AUTO) 1.1 /CMM (0.8-4.8); LYMPHOCYTES % (AUTO) 14.4 % (20.0-44.0); MEAN CORPUSCULAR HEMOGLOBIN 34 PG (26.0-33.0); MEAN CORPUSCULAR HGB CONC 34 g/dl (31.0-36.0); MEAN CORPUSCULAR VOLUME 99 fL (82-100); MONOCYTES # (AUTO) 0.7 /CMM (0.1-1.30); MONOCYTES % (AUTO) 9.2 % (2.0-12.0); NEUTROPHILS % (AUTO) 68.5 % (43.0-81.0); PLATELET COUNT (AUTO) 135 /CMM (150-450); RDW COEFFICIENT OF VARIATION 17.6 (11.5-15.0); RED BLOOD CELL COUNT(AUTO) 3.06 MIL/uL (4.0-5.2); WHITE BLOOD COUNT (AUTO) 7.4 K/uL (4.3-11.0)
[2017-02-19 07:12] LABS: ALANINE AMINOTRANSFERASE 412 U/L (12-78); ALBUMIN 2.1 g/dL (3.4-5.0); ALKALINE PHOSPHATASE 164 U/L (46-116); ASPARTATE AMINOTRANSFERASE 294 U/L (15-37); BILIRUBIN,TOTAL 0.8 mg/dL (0.2-1.0); CALCIUM, SERUM 7.9 mg/dL (8.5-10.1); CARBON DIOXIDE 25 mmol/L (21-32); CHLORIDE 110 mmol/L (98-107); CREATININE 1.6 mg/dL (0.6-1.3); GLUCOSE 104 mg/dL (74-106); MAGNESIUM 2.1 mg/dL (1.8-2.4); POTASSIUM 3.6 mmol/L (3.5-5.1); SODIUM SERUM 143 mmol/L (136-145); TOTAL PROTEIN, SERUM 5.4 g/dL (6.4-8.2); UREA NITROGEN, BLOOD 22 mg/dL (7-18)
[2017-02-19 07:19] LABS: IRON, SERUM 92 ug/dl (50-175); TOTAL IRON BINDING CAPACITY 146 ug/dl (250-450)
[2017-02-19 08:00] VITALS: BP 101/49
[2017-02-19 08:11] LABS: FERRITIN 1450 ng/mL (8-388)
[2017-02-19] MEDS: ASPIRIN EC 81 MG TABLET.DR PO SCH (08:29)
[2017-02-19] MEDS: PANTOPRAZOLE 40 MG TABLET.DR PO SCH (08:29)
[2017-02-19] MEDS: LEVOTHYROXINE SODIUM 25 MCG TABLET PO SCH (08:29)
[2017-02-19] MEDS: SPIRONOLACTONE 25 MG TABLET PO SCH (08:29)
[2017-02-19] MEDS: SERTRALINE HCL 50 MG TABLET PO SCH (08:29)
[2017-02-19] MEDS: MUPIROCIN OINT 2% 22 GM TUBE SCH ×2 (08:30→21:11)
[2017-02-19] MEDS: CARVEDILOL 12.5 MG TABLET PO SCH ×2 (08:30→17:45)
[2017-02-19] MEDS ORDERED: K PHOS NEUTRAL 250 MG TABLET PO ONE (15:00)
[2017-02-19 16:00] VITALS: BP_SYST 101; BP_SYST 120; BP_DIAS 54; BP_DIAS 56
[2017-02-19 20:00] VITALS: BP 108/56
[2017-02-20 04:00] VITALS: BP 115/58
[2017-02-20] MEDS: PIPERACILLIN /TAZOBACTAM 2.25 G in IV D5W 50 ML IV SCH ×3 (05:45→16:49)
[2017-02-20 06:49] LABS: BASOPHILS % (AUTO) 0.3 % (0.0-2.0); EOSINOPHILS # (AUTO) 0.5 /CMM (0.0-0.7); EOSINOPHILS % (AUTO) 6.9 % (0.0-6.0); HEMATOCRIT 30 % (33-45); HEMOGLOBIN 10.1 g/dL (11.5-14.8); LYMPHOCYTES # (AUTO) 0.9 /CMM (0.8-4.8); LYMPHOCYTES % (AUTO) 13.8 % (20.0-44.0); MEAN CORPUSCULAR HEMOGLOBIN 33 PG (26.0-33.0); MEAN CORPUSCULAR HGB CONC 34 g/dl (31.0-36.0); MEAN CORPUSCULAR VOLUME 97 fL (82-100); MONOCYTES # (AUTO) 0.6 /CMM (0.1-1.30); MONOCYTES % (AUTO) 9.4 % (2.0-12.0); NEUTROPHILS # (AUTO) 4.6 /CMM (1.8-8.9); NEUTROPHILS % (AUTO) 69.6 % (43.0-81.0); PLATELET COUNT (AUTO) 139 /CMM (150-450); RDW COEFFICIENT OF VARIATION 16.2 (11.5-15.0); RED BLOOD CELL COUNT(AUTO) 3.05 MIL/uL (4.0-5.2); WHITE BLOOD COUNT (AUTO) 6.6 K/uL (4.3-11.0)
[2017-02-20 07:16] LABS: ALANINE AMINOTRANSFERASE 332 U/L (12-78); ALBUMIN 1.9 g/dL (3.4-5.0); ALKALINE PHOSPHATASE 192 U/L (46-116); ASPARTATE AMINOTRANSFERASE 203 U/L (15-37); BILIRUBIN,DIRECT 1.2 mg/dL (0.0-0.2); BILIRUBIN,TOTAL 1.5 mg/dL (0.2-1.0); CALCIUM, SERUM 7.9 mg/dL (8.5-10.1); CARBON DIOXIDE 26 mmol/L (21-32); CHLORIDE 111 mmol/L (98-107); CREATININE 1.5 mg/dL (0.6-1.3); GLUCOSE 89 mg/dL (74-106); MAGNESIUM 1.8 mg/dL (1.8-2.4); POTASSIUM 3.3 mmol/L (3.5-5.1); SODIUM SERUM 144 mmol/L (136-145); TOTAL PROTEIN, SERUM 5.2 g/dL (6.4-8.2); UREA NITROGEN, BLOOD 14 mg/dL (7-18)
[2017-02-20 08:00] VITALS: BP 126/58
[2017-02-20] MEDS: ASPIRIN EC 81 MG TABLET.DR PO SCH (08:55)
[2017-02-20] MEDS: LEVOTHYROXINE SODIUM 25 MCG TABLET PO SCH (08:55)
[2017-02-20] MEDS: PANTOPRAZOLE 40 MG TABLET.DR PO SCH (08:55)
[2017-02-20] MEDS: SPIRONOLACTONE 25 MG TABLET PO SCH (08:55)
[2017-02-20] MEDS: SERTRALINE HCL 50 MG TABLET PO SCH (08:55)
[2017-02-20] MEDS: CARVEDILOL 12.5 MG TABLET PO SCH ×2 (08:56→16:49)
[2017-02-20] MEDS: MUPIROCIN OINT 2% 22 GM TUBE SCH ×2 (08:56→22:48)
[2017-02-20] MEDS ORDERED: POTASSIUM CHLORIDE 10 MEQ TABLET.SA PO ONE (10:30)
[2017-02-20 12:00] VITALS: BP 100/43
[2017-02-20 16:00] VITALS: BP 112/71
[2017-02-20] MEDS: AMIODARONE HCL 200 MG TABLET PO SCH (17:14)
[2017-02-21] VITALS (11 sets, daily range): BP systolic 90–136; BP diastolic 45–70
[2017-02-21] MEDS: PIPERACILLIN /TAZOBACTAM 2.25 G in IV D5W 50 ML IV SCH ×5 (01:45→23:34)
[2017-02-21] MEDS ORDERED: ANESTHESIA TRAY IN PYXIS 1 EA TRAY MC ONE (06:58)
[2017-02-21] MEDS ORDERED: BUPIVACAINE 0.5 % PF 150 MG/30 ML VIAL ONE (06:59)
[2017-02-21] MEDS ORDERED: LIDOCAINE 0.5% HCL 50 ML VIAL ONE (06:59)
[2017-02-21] MEDS: PANTOPRAZOLE 40 MG TABLET.DR PO SCH (07:30)
[2017-02-21] MEDS: LEVOTHYROXINE SODIUM 25 MCG TABLET PO SCH (07:30)
[2017-02-21] MEDS ORDERED: FENTANYL PF 100MCG/2ML AMPUL ONE (07:34)
[2017-02-21] MEDS ORDERED: ROCURONIUM BROMIDE 50 MG/5 ML ONE (07:34)
[2017-02-21 07:50] LABS: BASOPHILS % (AUTO) 0.3 % (0.0-2.0); EOSINOPHILS # (AUTO) 0.3 /CMM (0.0-0.7); HEMATOCRIT 30 % (33-45); HEMOGLOBIN 10.1 g/dL (11.5-14.8); LYMPHOCYTES # (AUTO) 0.7 /CMM (0.8-4.8); LYMPHOCYTES % (AUTO) 11.3 % (20.0-44.0); MEAN CORPUSCULAR HEMOGLOBIN 34 PG (26.0-33.0); MEAN CORPUSCULAR HGB CONC 34 g/dl (31.0-36.0); MEAN CORPUSCULAR VOLUME 99 fL (82-100); MONOCYTES # (AUTO) 0.5 /CMM (0.1-1.30); MONOCYTES % (AUTO) 7.1 % (2.0-12.0); NEUTROPHILS # (AUTO) 4.9 /CMM (1.8-8.9); NEUTROPHILS % (AUTO) 76.3 % (43.0-81.0); PLATELET COUNT (AUTO) 126 /CMM (150-450); RDW COEFFICIENT OF VARIATION 17.1 (11.5-15.0); RED BLOOD CELL COUNT(AUTO) 2.99 MIL/uL (4.0-5.2); WHITE BLOOD COUNT (AUTO) 6.4 K/uL (4.3-11.0)
[2017-02-21 08:26] LABS: CARBON DIOXIDE 25 mmol/L (21-32); CHLORIDE 107 mmol/L (98-107); CREATININE 1.4 mg/dL (0.6-1.3); GLUCOSE 89 mg/dL (74-106); POTASSIUM 3.6 mmol/L (3.5-5.1); SODIUM SERUM 141 mmol/L (136-145); UREA NITROGEN, BLOOD 11 mg/dL (7-18)
[2017-02-21] MEDS ORDERED: CELLULOSE,OXIDIZED 1 PKT EACH MC ONE (08:35)
[2017-02-21] MEDS: AMIODARONE HCL 200 MG TABLET PO SCH (09:00)
[2017-02-21] MEDS: ASPIRIN EC 81 MG TABLET.DR PO SCH (09:00)
[2017-02-21] MEDS: SPIRONOLACTONE 25 MG TABLET PO SCH (09:00)
[2017-02-21] MEDS: MUPIROCIN OINT 2% 22 GM TUBE SCH ×2 (09:00→21:04)
[2017-02-21] MEDS: CARVEDILOL 12.5 MG TABLET PO SCH ×2 (09:00→17:00)
[2017-02-21] MEDS: SERTRALINE HCL 50 MG TABLET PO SCH (09:00)
[2017-02-21 09:23] LABS: BETA-2 MICROGLOBULIN, SERUM 5.6 mg/L (0.6-2.4)
[2017-02-21] MEDS ORDERED: HYDROMORPHONE 1 MG/1 ML DISP.SYRIN IV PRN (12:30)
[2017-02-21] MEDS ORDERED: GABAPENTIN 100 MG CAPSULE PO ONE (12:30)
[2017-02-21] MEDS ORDERED: IBUPROFEN 400 MG TABLET PO ONE (12:30)
[2017-02-21] MEDS ORDERED: ACETAMINOPHEN 325 MG TABLET PO ONE (12:30)
[2017-02-21] MEDS ORDERED: HYDROCODONE/APAP 10/325MG 1 EA TABLET PO PRN (12:30)
[2017-02-21] MEDS: IBUPROFEN 400 MG TABLET PO SCH (20:55)
[2017-02-21] MEDS: GABAPENTIN 100 MG CAPSULE PO SCH (20:56)
[2017-02-21] MEDS: ACETAMINOPHEN 325 MG TABLET PO SCH (20:56)
[2017-02-22 04:00] VITALS: BP 95/44
[2017-02-22] MEDS: GABAPENTIN 100 MG CAPSULE PO SCH ×3 (05:17→22:13)
[2017-02-22] MEDS: IBUPROFEN 400 MG TABLET PO SCH ×3 (05:17→22:13)
[2017-02-22] MEDS: ACETAMINOPHEN 325 MG TABLET PO SCH ×3 (05:17→22:13)
[2017-02-22] MEDS: PIPERACILLIN /TAZOBACTAM 2.25 G in IV D5W 50 ML IV SCH ×2 (05:19→11:58)
[2017-02-22 07:22] LABS: EOSINOPHILS % (AUTO) 0.2 % (0.0-6.0); HEMATOCRIT 32 % (33-45); HEMOGLOBIN 10.6 g/dL (11.5-14.8); LYMPHOCYTES # (AUTO) 0.7 /CMM (0.8-4.8); LYMPHOCYTES % (AUTO) 6.8 % (20.0-44.0); MEAN CORPUSCULAR HEMOGLOBIN 33 PG (26.0-33.0); MEAN CORPUSCULAR HGB CONC 33 g/dl (31.0-36.0); MEAN CORPUSCULAR VOLUME 100 fL (82-100); MONOCYTES # (AUTO) 0.5 /CMM (0.1-1.30); MONOCYTES % (AUTO) 5.1 % (2.0-12.0); NEUTROPHILS # (AUTO) 9.1 /CMM (1.8-8.9); NEUTROPHILS % (AUTO) 87.9 % (43.0-81.0); PLATELET COUNT (AUTO) 146 /CMM (150-450); RDW COEFFICIENT OF VARIATION 17.6 (11.5-15.0); RED BLOOD CELL COUNT(AUTO) 3.17 MIL/uL (4.0-5.2); WHITE BLOOD COUNT (AUTO) 10.4 K/uL (4.3-11.0)
[2017-02-22 07:36] LABS: CALCIUM, SERUM 7.9 mg/dL (8.5-10.1); CARBON DIOXIDE 24 mmol/L (21-32); CHLORIDE 108 mmol/L (98-107); CREATININE 1.9 mg/dL (0.6-1.3); GLUCOSE 145 mg/dL (74-106); POTASSIUM 4.4 mmol/L (3.5-5.1); SODIUM SERUM 140 mmol/L (136-145); UREA NITROGEN, BLOOD 18 mg/dL (7-18)
[2017-02-22 08:02] VITALS: BP 105/45
[2017-02-22 08:07] LABS: IMMUNOGLOBULIN A, SERUM 491 mg/dL (64-422); IMMUNOGLOBULIN G, SERUM 995 mg/dL (700-1600); IMMUNOGLOBULIN M, SERUM 58 mg/dL (26-217)
[2017-02-22] MEDS ORDERED: IV NS 0.9% 1,000 ML IV PRN (09:58)
[2017-02-22] MEDS: LEVOTHYROXINE SODIUM 25 MCG TABLET PO SCH (10:17)
[2017-02-22] MEDS: SERTRALINE HCL 50 MG TABLET PO SCH (10:17)
[2017-02-22] MEDS: AMIODARONE HCL 200 MG TABLET PO SCH (10:24)
[2017-02-22] MEDS: PANTOPRAZOLE 40 MG TABLET.DR PO SCH (10:24)
[2017-02-22] MEDS: CARVEDILOL 12.5 MG TABLET PO SCH ×2 (10:25→17:00)
[2017-02-22] MEDS: SPIRONOLACTONE 25 MG TABLET PO SCH (10:25)
[2017-02-22] MEDS: ASPIRIN EC 81 MG TABLET.DR PO SCH (10:25)
[2017-02-22] MEDS: MUPIROCIN OINT 2% 22 GM TUBE SCH ×2 (10:28→22:12)
[2017-02-22] MEDS: ONDANSETRON HCL/PF 4 MG/2 ML VIAL IV PRN (13:30)
[2017-02-22 17:54] VITALS: BP 88/46
[2017-02-22 20:00] VITALS: BP 93/48
[2017-02-22] MEDS: LINEZOLID RTU BAG 600 MG in PREMIX 1 EA IV SCH (22:04)
[2017-02-23 04:00] VITALS: BP 93/45
[2017-02-23] MEDS: IBUPROFEN 400 MG TABLET PO SCH ×2 (05:35→12:32)
[2017-02-23] MEDS: ACETAMINOPHEN 325 MG TABLET PO SCH ×3 (05:35→20:49)
[2017-02-23] MEDS: GABAPENTIN 100 MG CAPSULE PO SCH ×3 (05:35→20:51)
[2017-02-23 07:52] LABS: BASOPHILS % (AUTO) 0.1 % (0.0-2.0); EOSINOPHILS # (AUTO) 0.3 /CMM (0.0-0.7); EOSINOPHILS % (AUTO) 2.6 % (0.0-6.0); HEMATOCRIT 30 % (33-45); HEMOGLOBIN 10.3 g/dL (11.5-14.8); LYMPHOCYTES # (AUTO) 0.7 /CMM (0.8-4.8); LYMPHOCYTES % (AUTO) 6.4 % (20.0-44.0); MEAN CORPUSCULAR HEMOGLOBIN 34 PG (26.0-33.0); MEAN CORPUSCULAR HGB CONC 34 g/dl (31.0-36.0); MEAN CORPUSCULAR VOLUME 100 fL (82-100); MONOCYTES # (AUTO) 0.2 /CMM (0.1-1.30); MONOCYTES % (AUTO) 1.9 % (2.0-12.0); NEUTROPHILS # (AUTO) 9.3 /CMM (1.8-8.9); PLATELET COUNT (AUTO) 119 /CMM (150-450); RDW COEFFICIENT OF VARIATION 17.6 (11.5-15.0); RED BLOOD CELL COUNT(AUTO) 3.04 MIL/uL (4.0-5.2); WHITE BLOOD COUNT (AUTO) 10.4 K/uL (4.3-11.0)
[2017-02-23 08:00] VITALS: BP 101/50
[2017-02-23] MEDS: LEVOTHYROXINE SODIUM 25 MCG TABLET PO SCH (08:03)
[2017-02-23] MEDS: PANTOPRAZOLE 40 MG TABLET.DR PO SCH (08:03)
[2017-02-23 08:23] LABS: CALCIUM, SERUM 7.8 mg/dL (8.5-10.1); CARBON DIOXIDE 23 mmol/L (21-32); CHLORIDE 102 mmol/L (98-107); GLUCOSE 115 mg/dL (74-106); POTASSIUM 3.7 mmol/L (3.5-5.1); SODIUM SERUM 132 mmol/L (136-145); UREA NITROGEN, BLOOD 25 mg/dL (7-18)
[2017-02-23] MEDS: CARVEDILOL 12.5 MG TABLET PO SCH ×2 (09:00→17:00)
[2017-02-23] MEDS ORDERED: SERTRALINE HCL 50 MG TABLET PO SCH (09:00)
[2017-02-23] MEDS: AMIODARONE HCL 200 MG TABLET PO SCH (09:00)
[2017-02-23] MEDS: SPIRONOLACTONE 25 MG TABLET PO SCH (09:53)
[2017-02-23] MEDS: LINEZOLID RTU BAG 600 MG in PREMIX 1 EA IV SCH ×2 (09:53→20:49)
[2017-02-23] MEDS: ASPIRIN EC 81 MG TABLET.DR PO SCH (09:53)
[2017-02-23 12:00] VITALS: BP 101/50
[2017-02-23 16:00] VITALS: BP 96/44
[2017-02-23] MEDS: MUPIROCIN OINT 2% 22 GM TUBE SCH ×2 (18:51→20:50)
[2017-02-23 20:00] VITALS: BP 106/46
[2017-02-24 04:00] VITALS: BP 93/46
[2017-02-24] MEDS: ACETAMINOPHEN 325 MG TABLET PO SCH ×3 (04:56→21:00)
[2017-02-24] MEDS: GABAPENTIN 100 MG CAPSULE PO SCH ×3 (04:56→21:13)
[2017-02-24 08:00] VITALS: BP 100/42
[2017-02-24 08:29] LABS: BASOPHILS % (AUTO) 0.2 % (0.0-2.0); EOSINOPHILS # (AUTO) 0.2 /CMM (0.0-0.7); EOSINOPHILS % (AUTO) 2.3 % (0.0-6.0); HEMATOCRIT 31 % (33-45); HEMOGLOBIN 10.6 g/dL (11.5-14.8); LYMPHOCYTES # (AUTO) 0.9 /CMM (0.8-4.8); LYMPHOCYTES % (AUTO) 8.7 % (20.0-44.0); MEAN CORPUSCULAR HEMOGLOBIN 33 PG (26.0-33.0); MEAN CORPUSCULAR HGB CONC 34 g/dl (31.0-36.0); MEAN CORPUSCULAR VOLUME 98 fL (82-100); MONOCYTES # (AUTO) 0.2 /CMM (0.1-1.30); NEUTROPHILS # (AUTO) 8.6 /CMM (1.8-8.9); NEUTROPHILS % (AUTO) 86.8 % (43.0-81.0); PLATELET COUNT (AUTO) 113 /CMM (150-450); RDW COEFFICIENT OF VARIATION 17.1 (11.5-15.0); RED BLOOD CELL COUNT(AUTO) 3.16 MIL/uL (4.0-5.2); WHITE BLOOD COUNT (AUTO) 9.9 K/uL (4.3-11.0)
[2017-02-24 08:37] LABS: CARBON DIOXIDE 22 mmol/L (21-32); CHLORIDE 101 mmol/L (98-107); CREATININE 1.9 mg/dL (0.6-1.3); GLUCOSE 81 mg/dL (74-106); SODIUM SERUM 131 mmol/L (136-145); UREA NITROGEN, BLOOD 28 mg/dL (7-18)
[2017-02-24] MEDS: CARVEDILOL 12.5 MG TABLET PO SCH ×2 (09:00→17:00)
[2017-02-24] MEDS: DOCUSATE SODIUM LIQ 100 MG/10 ML UDC PO SCH ×2 (09:01→09:50)
[2017-02-24] MEDS: SPIRONOLACTONE 25 MG TABLET PO SCH (09:02)
[2017-02-24] MEDS: PANTOPRAZOLE 40 MG TABLET.DR PO SCH (09:02)
[2017-02-24] MEDS: LEVOTHYROXINE SODIUM 25 MCG TABLET PO SCH (09:02)
[2017-02-24] MEDS: ASPIRIN EC 81 MG TABLET.DR PO SCH (09:02)
[2017-02-24] MEDS: AMIODARONE HCL 200 MG TABLET PO SCH (09:03)
[2017-02-24] MEDS: MUPIROCIN OINT 2% 22 GM TUBE SCH ×2 (09:04→21:13)
[2017-02-24] MEDS ORDERED: FUROSEMIDE 20 MG/2 ML VIAL IV ONE (09:30)
[2017-02-24] MEDS: LINEZOLID RTU BAG 600 MG in PREMIX 1 EA IV SCH (09:51)
[2017-02-24] MEDS: ONDANSETRON HCL/PF 4 MG/2 ML VIAL IV PRN (12:36)
[2017-02-24] MEDS ORDERED: BISACODYL SUPP (10 MG) 10 MG/SUPP.RECT SUPP.RECT RC PRN (13:30)
[2017-02-24 16:00] VITALS: BP 90/45
[2017-02-24] MEDS ORDERED: Z GUARD REMEDY 2 OZ OINT TP PRN (17:00)
[2017-02-24 20:00] VITALS: BP 93/43
[2017-02-24] MEDS: LINEZOLID 600 MG TABLET PO SCH (21:13)
[2017-02-25 04:00] VITALS: BP 106/61
[2017-02-25] MEDS: ACETAMINOPHEN 325 MG TABLET PO SCH ×3 (04:26→21:06)
[2017-02-25] MEDS: GABAPENTIN 100 MG CAPSULE PO SCH ×3 (05:05→21:06)
[2017-02-25 05:10] LABS: *SPE ALBUMIN 2.4 g/dL (2.9-4.4); *SPE ALPHA-1-GLOBULIN 0.2 g/dL (0.0-0.4); *SPE ALPHA-2-GLOBULIN 0.6 g/dL (0.4-1.0); *SPE BETA GLOBULIN 0.6 g/dL (0.7-1.3); *SPE GLOBULIN, TOTAL 2.3 g/dL (2.2-3.9); *SPE M-SPIKE Not Observed g/dL (Not Observed)
[2017-02-25 08:00] VITALS: BP 99/46
[2017-02-25] MEDS: ASPIRIN EC 81 MG TABLET.DR PO SCH (08:17)
[2017-02-25] MEDS: LEVOTHYROXINE SODIUM 25 MCG TABLET PO SCH (08:17)
[2017-02-25] MEDS: SPIRONOLACTONE 25 MG TABLET PO SCH (08:17)
[2017-02-25] MEDS: DOCUSATE SODIUM LIQ 100 MG/10 ML UDC PO SCH (08:17)
[2017-02-25] MEDS: PANTOPRAZOLE 40 MG TABLET.DR PO SCH (08:17)
[2017-02-25] MEDS: AMIODARONE HCL 200 MG TABLET PO SCH (08:17)
[2017-02-25] MEDS: MUPIROCIN OINT 2% 22 GM TUBE SCH ×2 (08:18→21:06)
[2017-02-25] MEDS: CARVEDILOL 12.5 MG TABLET PO SCH ×2 (08:18→17:00)
[2017-02-25 08:28] LABS: BASOPHILS % (AUTO) 0.3 % (0.0-2.0); EOSINOPHILS # (AUTO) 0.1 /CMM (0.0-0.7); EOSINOPHILS % (AUTO) 0.7 % (0.0-6.0); HEMATOCRIT 30 % (33-45); HEMOGLOBIN 10.6 g/dL (11.5-14.8); LYMPHOCYTES # (AUTO) 0.9 /CMM (0.8-4.8); LYMPHOCYTES % (AUTO) 9.5 % (20.0-44.0); MEAN CORPUSCULAR HEMOGLOBIN 34 PG (26.0-33.0); MEAN CORPUSCULAR HGB CONC 35 g/dl (31.0-36.0); MEAN CORPUSCULAR VOLUME 97 fL (82-100); MONOCYTES # (AUTO) 0.2 /CMM (0.1-1.30); MONOCYTES % (AUTO) 2.5 % (2.0-12.0); PLATELET COUNT (AUTO) 116 /CMM (150-450); RDW COEFFICIENT OF VARIATION 17.4 (11.5-15.0); RED BLOOD CELL COUNT(AUTO) 3.13 MIL/uL (4.0-5.2); WHITE BLOOD COUNT (AUTO) 9.3 K/uL (4.3-11.0)
[2017-02-25 08:42] LABS: CARBON DIOXIDE 22 mmol/L (21-32); CHLORIDE 99 mmol/L (98-107); CREATININE 2.1 mg/dL (0.6-1.3); GLUCOSE 79 mg/dL (74-106); POTASSIUM 4.2 mmol/L (3.5-5.1); SODIUM SERUM 130 mmol/L (136-145); UREA NITROGEN, BLOOD 33 mg/dL (7-18)
[2017-02-25] MEDS: LINEZOLID 600 MG TABLET PO SCH ×2 (09:43→21:06)
[2017-02-25] MEDS ORDERED: FUROSEMIDE 20 MG/2 ML VIAL IV ONE (11:00)
[2017-02-25 16:00] VITALS: BP_SYST 93; BP_SYST 99; BP_DIAS 41; BP_DIAS 46
[2017-02-25 20:00] VITALS: BP 112/53
[2017-02-26 04:00] VITALS: BP 126/56
[2017-02-26] MEDS: GABAPENTIN 100 MG CAPSULE PO SCH ×3 (05:26→21:44)
[2017-02-26] MEDS: ACETAMINOPHEN 325 MG TABLET PO SCH ×3 (05:26→21:44)
[2017-02-26 08:11] LABS: BASOPHILS % (AUTO) 0.2 % (0.0-2.0); EOSINOPHILS # (AUTO) 0.1 /CMM (0.0-0.7); HEMATOCRIT 30 % (33-45); HEMOGLOBIN 10.3 g/dL (11.5-14.8); LYMPHOCYTES # (AUTO) 1.1 /CMM (0.8-4.8); LYMPHOCYTES % (AUTO) 11.9 % (20.0-44.0); MEAN CORPUSCULAR HEMOGLOBIN 34 PG (26.0-33.0); MEAN CORPUSCULAR HGB CONC 34 g/dl (31.0-36.0); MEAN CORPUSCULAR VOLUME 97 fL (82-100); MONOCYTES # (AUTO) 0.3 /CMM (0.1-1.30); NEUTROPHILS # (AUTO) 7.5 /CMM (1.8-8.9); NEUTROPHILS % (AUTO) 83.9 % (43.0-81.0); PLATELET COUNT (AUTO) 120 /CMM (150-450); RDW COEFFICIENT OF VARIATION 17.4 (11.5-15.0); RED BLOOD CELL COUNT(AUTO) 3.08 MIL/uL (4.0-5.2); WHITE BLOOD COUNT (AUTO) 8.9 K/uL (4.3-11.0)
[2017-02-26 08:18] LABS: CALCIUM, SERUM 7.8 mg/dL (8.5-10.1); CARBON DIOXIDE 17 mmol/L (21-32); CHLORIDE 102 mmol/L (98-107); CREATININE 2.4 mg/dL (0.6-1.3); GLUCOSE 112 mg/dL (74-106); MAGNESIUM 1.7 mg/dL (1.8-2.4); PHOSPHORUS 4.6 mg/dL (2.5-4.9); POTASSIUM 4.5 mmol/L (3.5-5.1); SODIUM SERUM 130 mmol/L (136-145); UREA NITROGEN, BLOOD 38 mg/dL (7-18)
[2017-02-26] MEDS: CARVEDILOL 12.5 MG TABLET PO SCH ×2 (09:00→17:00)
[2017-02-26] MEDS: AMIODARONE HCL 200 MG TABLET PO SCH (09:00)
[2017-02-26] MEDS: DOCUSATE SODIUM LIQ 100 MG/10 ML UDC PO SCH (09:14)
[2017-02-26] MEDS: LINEZOLID 600 MG TABLET PO SCH ×2 (09:15→21:44)
[2017-02-26] MEDS: LEVOTHYROXINE SODIUM 25 MCG TABLET PO SCH (09:15)
[2017-02-26] MEDS: SPIRONOLACTONE 25 MG TABLET PO SCH (09:15)
[2017-02-26] MEDS: ASPIRIN EC 81 MG TABLET.DR PO SCH (09:15)
[2017-02-26] MEDS: PANTOPRAZOLE 40 MG TABLET.DR PO SCH (09:15)
[2017-02-26] MEDS: MUPIROCIN OINT 2% 22 GM TUBE SCH ×2 (09:16→21:44)
[2017-02-26] MEDS ORDERED: MORPHINE SULFATE INJ 2 MG/ML DISP.SYRIN IV PRN (11:30)
[2017-02-26] MEDS ORDERED: BISACODYL SUPP (10 MG) 10 MG/SUPP.RECT SUPP.RECT RC PRN (12:00)
[2017-02-26] MEDS ORDERED: BISACODYL (5 MG) 5 MG TABLET.DR PO PRN (12:00)
[2017-02-26] MEDS ORDERED: Magnesium 1GM/D5W 100ML PREMIX 100 ML IV SCH (12:37)
[2017-02-26] MEDS: POLYETHYLENE GLYCOL 3350 17 GM POWD.PACK PO SCH ×2 (13:18→21:44)
[2017-02-26 20:00] VITALS: BP 108/45
[2017-02-27 04:00] VITALS: BP 101/44
[2017-02-27] MEDS: ACETAMINOPHEN 325 MG TABLET PO SCH ×3 (05:38→20:56)
[2017-02-27] MEDS: GABAPENTIN 100 MG CAPSULE PO SCH ×3 (05:38→20:56)
[2017-02-27 08:00] VITALS: BP 91/37
[2017-02-27 08:12] LABS: BASOPHILS % (AUTO) 0.1 % (0.0-2.0); EOSINOPHILS # (AUTO) 0.1 /CMM (0.0-0.7); EOSINOPHILS % (AUTO) 0.4 % (0.0-6.0); HEMATOCRIT 30 % (33-45); HEMOGLOBIN 10.3 g/dL (11.5-14.8); LYMPHOCYTES # (AUTO) 1.2 /CMM (0.8-4.8); MEAN CORPUSCULAR HEMOGLOBIN 33 PG (26.0-33.0); MEAN CORPUSCULAR HGB CONC 35 g/dl (31.0-36.0); MEAN CORPUSCULAR VOLUME 96 fL (82-100); MONOCYTES # (AUTO) 0.3 /CMM (0.1-1.30); NEUTROPHILS % (AUTO) 89.5 % (43.0-81.0); PLATELET COUNT (AUTO) 126 /CMM (150-450); RDW COEFFICIENT OF VARIATION 16.1 (11.5-15.0); RED BLOOD CELL COUNT(AUTO) 3.11 MIL/uL (4.0-5.2); WHITE BLOOD COUNT (AUTO) 14.6 K/uL (4.3-11.0)
[2017-02-27] MEDS: MUPIROCIN OINT 2% 22 GM TUBE SCH ×2 (08:18→20:57)
[2017-02-27] MEDS: LEVOTHYROXINE SODIUM 25 MCG TABLET PO SCH (08:19)
[2017-02-27] MEDS: CARVEDILOL 12.5 MG TABLET PO SCH ×2 (08:19→16:27)
[2017-02-27] MEDS: LINEZOLID 600 MG TABLET PO SCH ×2 (08:19→20:56)
[2017-02-27] MEDS: DOCUSATE SODIUM LIQ 100 MG/10 ML UDC PO SCH (08:19)
[2017-02-27] MEDS: ASPIRIN EC 81 MG TABLET.DR PO SCH (08:19)
[2017-02-27] MEDS: PANTOPRAZOLE 40 MG TABLET.DR PO SCH (08:19)
[2017-02-27] MEDS: AMIODARONE HCL 200 MG TABLET PO SCH (08:19)
[2017-02-27 08:25] LABS: CALCIUM, SERUM 7.7 mg/dL (8.5-10.1); CARBON DIOXIDE 20 mmol/L (21-32); CHLORIDE 100 mmol/L (98-107); CREATININE 2.8 mg/dL (0.6-1.3); GLUCOSE 80 mg/dL (74-106); MAGNESIUM 1.9 mg/dL (1.8-2.4); PHOSPHORUS 5.4 mg/dL (2.5-4.9); POTASSIUM 4.8 mmol/L (3.5-5.1); SODIUM SERUM 131 mmol/L (136-145); UREA NITROGEN, BLOOD 44 mg/dL (7-18)
[2017-02-27] MEDS: IV NS 0.9% 1,000 ML IV PRN (10:59)
[2017-02-27 12:00] VITALS: BP 97/41
[2017-02-27 14:49] LABS: APPEARANCE,URINE CLEAR (CLEAR); BILIRUBIN,URINE NEGATIVE (NEGATIVE); BLOOD, URINE NEGATIVE Ery/uL (NEGATIVE); COLOR,URINE YELLOW (YELLOW); KETONES,URINE NEGATIVE (NEGATIVE); LEUKOCYTE ESTERASE ,URINE NEGATIVE (NEGATIVE); NITRITE, URINE NEGATIVE (NEGATIVE); PH,URINE 5.5 (5.0-8.0); PROTEIN,URINE NEGATIVE (NEGATIVE); UGLUCOSE NEGATIVE (NEGATIVE); UROBILINOGEN,URINE 0.2 EU/dL (0.2)
[2017-02-27 15:02] LABS: CREATININE, URINE 60.2 MG/DL (30.0-125.0); URINE TOTAL PROTEIN 48.5 mg/dL (0-11.9)
[2017-02-27 16:00] VITALS: BP 93/38
[2017-02-27 16:00] LABS: EOSINOPHIL,URINE None Seen
[2017-02-27 20:00] VITALS: BP 108/58
[2017-02-27] MEDS: POLYETHYLENE GLYCOL 3350 17 GM POWD.PACK PO SCH (21:05)
[2017-02-28] MEDS: GABAPENTIN 100 MG CAPSULE PO SCH ×3 (04:31→21:50)
[2017-02-28] MEDS: ACETAMINOPHEN 325 MG TABLET PO SCH ×3 (04:31→21:50)
[2017-02-28] MEDS: IV NS 0.9% 1,000 ML IV PRN (06:02)
[2017-02-28] MEDS: PANTOPRAZOLE 40 MG TABLET.DR PO SCH (07:30)
[2017-02-28 07:54] LABS: BASOPHILS % (AUTO) 0.2 % (0.0-2.0); EOSINOPHILS # (AUTO) 0.1 /CMM (0.0-0.7); EOSINOPHILS % (AUTO) 0.5 % (0.0-6.0); HEMATOCRIT 29 % (33-45); HEMOGLOBIN 9.8 g/dL (11.5-14.8); LYMPHOCYTES # (AUTO) 1.1 /CMM (0.8-4.8); LYMPHOCYTES % (AUTO) 9.6 % (20.0-44.0); MEAN CORPUSCULAR HEMOGLOBIN 33 PG (26.0-33.0); MEAN CORPUSCULAR HGB CONC 34 g/dl (31.0-36.0); MEAN CORPUSCULAR VOLUME 97 fL (82-100); MONOCYTES # (AUTO) 0.1 /CMM (0.1-1.30); MONOCYTES % (AUTO) 1.2 % (2.0-12.0); NEUTROPHILS # (AUTO) 9.8 /CMM (1.8-8.9); NEUTROPHILS % (AUTO) 88.5 % (43.0-81.0); PLATELET COUNT (AUTO) 113 /CMM (150-450); RDW COEFFICIENT OF VARIATION 16.9 (11.5-15.0); RED BLOOD CELL COUNT(AUTO) 2.97 MIL/uL (4.0-5.2); WHITE BLOOD COUNT (AUTO) 11.1 K/uL (4.3-11.0)
[2017-02-28 08:00] VITALS: BP 114/46
[2017-02-28 08:31] LABS: ALANINE AMINOTRANSFERASE 126 U/L (12-78); ALBUMIN 1.5 g/dL (3.4-5.0); ALKALINE PHOSPHATASE 365 U/L (46-116); ASPARTATE AMINOTRANSFERASE 109 U/L (15-37); CALCIUM, SERUM 7.7 mg/dL (8.5-10.1); CARBON DIOXIDE 19 mmol/L (21-32); CHLORIDE 103 mmol/L (98-107); CREATININE 2.8 mg/dL (0.6-1.3); GLUCOSE 65 mg/dL (74-106); PHOSPHORUS 5.6 mg/dL (2.5-4.9); POTASSIUM 5.1 mmol/L (3.5-5.1); SODIUM SERUM 133 mmol/L (136-145); TOTAL PROTEIN, SERUM 5.1 g/dL (6.4-8.2); UREA NITROGEN, BLOOD 50 mg/dL (7-18)
[2017-02-28] MEDS: CARVEDILOL 12.5 MG TABLET PO SCH ×2 (09:00→16:24)
[2017-02-28] MEDS: AMIODARONE HCL 200 MG TABLET PO SCH (09:00)
[2017-02-28] MEDS: DOCUSATE SODIUM LIQ 100 MG/10 ML UDC PO SCH (09:35)
[2017-02-28] MEDS: LEVOTHYROXINE SODIUM 25 MCG TABLET PO SCH (09:35)
[2017-02-28] MEDS: MUPIROCIN OINT 2% 22 GM TUBE SCH ×2 (09:36→21:51)
[2017-02-28] MEDS: ASPIRIN EC 81 MG TABLET.DR PO SCH (09:36)
[2017-02-28] MEDS: LINEZOLID 600 MG TABLET PO SCH ×2 (09:36→21:50)
[2017-02-28] MEDS ORDERED: ALBUTEROL FS 2.5 MG/3 ML VIAL.NEB NEB PRN (10:30)
[2017-02-28] MEDS: ALBUTEROL FS 2.5 MG/3 ML VIAL.NEB NEB SCH ×3 (10:57→19:30)
[2017-02-28] MEDS: ALBUMIN 25% 25 GM in PREMIX 1 EA IV SCH ×3 (12:35→22:39)
[2017-02-28] MEDS: POLYETHYLENE GLYCOL 3350 17 GM POWD.PACK PO SCH (21:50)
[2017-02-28 22:00] VITALS: BP 120/44
[2017-03-01] MEDS: ALBUTEROL FS 2.5 MG/3 ML VIAL.NEB NEB SCH ×4 (01:36→20:28)
[2017-03-01] MEDS: GABAPENTIN 100 MG CAPSULE PO SCH ×3 (05:41→21:40)
[2017-03-01] MEDS: ALBUMIN 25% 25 GM in PREMIX 1 EA IV SCH (05:42)
[2017-03-01] MEDS: ACETAMINOPHEN 325 MG TABLET PO SCH ×3 (05:53→21:39)
[2017-03-01 07:49] LABS: CARBON DIOXIDE 18 mmol/L (21-32); CHLORIDE 101 mmol/L (98-107); CREATININE 2.9 mg/dL (0.6-1.3); GLUCOSE 71 mg/dL (74-106); SODIUM SERUM 133 mmol/L (136-145); UREA NITROGEN, BLOOD 57 mg/dL (7-18)
[2017-03-01 07:50] LABS: BASOPHILS % (AUTO) 0.2 % (0.0-2.0); EOSINOPHILS % (AUTO) 0.3 % (0.0-6.0); HEMATOCRIT 26 % (33-45); HEMOGLOBIN 8.8 g/dL (11.5-14.8); LYMPHOCYTES # (AUTO) 0.6 /CMM (0.8-4.8); LYMPHOCYTES % (AUTO) 9.2 % (20.0-44.0); MEAN CORPUSCULAR HEMOGLOBIN 33 PG (26.0-33.0); MEAN CORPUSCULAR HGB CONC 34 g/dl (31.0-36.0); MEAN CORPUSCULAR VOLUME 98 fL (82-100); MONOCYTES % (AUTO) 0.6 % (2.0-12.0); NEUTROPHILS # (AUTO) 6.3 /CMM (1.8-8.9); NEUTROPHILS % (AUTO) 89.7 % (43.0-81.0); PLATELET COUNT (AUTO) 94 /CMM (150-450); RDW COEFFICIENT OF VARIATION 17.5 (11.5-15.0); RED BLOOD CELL COUNT(AUTO) 2.63 MIL/uL (4.0-5.2)
[2017-03-01 07:55] LABS: ALANINE AMINOTRANSFERASE 78 U/L (12-78); ALBUMIN 3.2 g/dL (3.4-5.0); ALKALINE PHOSPHATASE 264 U/L (46-116); ASPARTATE AMINOTRANSFERASE 66 U/L (15-37); BILIRUBIN,TOTAL 1.5 mg/dL (0.2-1.0); PHOSPHORUS 5.8 mg/dL (2.5-4.9); TOTAL PROTEIN, SERUM 5.9 g/dL (6.4-8.2)
[2017-03-01 08:00] VITALS: BP 113/41
[2017-03-01] MEDS: LEVOTHYROXINE SODIUM 25 MCG TABLET PO SCH (08:14)
[2017-03-01] MEDS: PANTOPRAZOLE 40 MG TABLET.DR PO SCH (08:14)
[2017-03-01] MEDS: CARVEDILOL 12.5 MG TABLET PO SCH ×2 (09:00→16:42)
[2017-03-01] MEDS: AMIODARONE HCL 200 MG TABLET PO SCH (09:00)
[2017-03-01] MEDS: ASPIRIN EC 81 MG TABLET.DR PO SCH (09:29)
[2017-03-01] MEDS: DOCUSATE SODIUM LIQ 100 MG/10 ML UDC PO SCH (09:29)
[2017-03-01] MEDS: LINEZOLID 600 MG TABLET PO SCH ×2 (09:29→21:40)
[2017-03-01] MEDS: MUPIROCIN OINT 2% 22 GM TUBE SCH ×2 (09:33→21:39)
[2017-03-01 10:12] LABS: BAND % (MANUAL) 1 % (0.0-5.0); LYMPHOCYTES % (MANUAL) 5 % (16-48); MONOCYTES % (MANUAL) 2 % (0-11.0); NEUTROPHILS % (MANUAL) 92 (42-76)
[2017-03-01] MEDS: BOOST GLUCOSE CONTROL VANILLA 237 ML BOX PO SCH ×2 (13:51→16:41)
[2017-03-01] MEDS: IPRATROPIUM NEB FS 0.5 MG/2.5 ML AMPUL.NEB NEB SCH ×3 (14:15→20:28)
[2017-03-01 16:00] VITALS: BP 131/49
[2017-03-01 18:00] VITALS: BP 131/49
[2017-03-01 20:00] VITALS: BP 122/45
[2017-03-01] MEDS: POLYETHYLENE GLYCOL 3350 17 GM POWD.PACK PO SCH (21:40)
[2017-03-02] MEDS: IPRATROPIUM NEB FS 0.5 MG/2.5 ML AMPUL.NEB NEB SCH ×7 (00:17→23:29)
[2017-03-02] MEDS: ALBUTEROL FS 2.5 MG/3 ML VIAL.NEB NEB SCH ×5 (01:33→23:29)
[2017-03-02] MEDS: ACETAMINOPHEN 325 MG TABLET PO SCH ×3 (04:58→21:00)
[2017-03-02] MEDS: GABAPENTIN 100 MG CAPSULE PO SCH ×3 (04:58→21:00)
[2017-03-02] MEDS: IV NS 0.9% 1,000 ML IV PRN ×2 (05:07→21:07)
[2017-03-02 07:43] LABS: BASOPHILS % (AUTO) 0.1 % (0.0-2.0); EOSINOPHILS % (AUTO) 0.2 % (0.0-6.0); HEMATOCRIT 31 % (33-45); HEMOGLOBIN 10.5 g/dL (11.5-14.8); LYMPHOCYTES # (AUTO) 0.4 /CMM (0.8-4.8); LYMPHOCYTES % (AUTO) 4.9 % (20.0-44.0); MEAN CORPUSCULAR HEMOGLOBIN 33 PG (26.0-33.0); MEAN CORPUSCULAR HGB CONC 34 g/dl (31.0-36.0); MEAN CORPUSCULAR VOLUME 98 fL (82-100); MONOCYTES # (AUTO) 0.2 /CMM (0.1-1.30); MONOCYTES % (AUTO) 1.8 % (2.0-12.0); NEUTROPHILS # (AUTO) 7.9 /CMM (1.8-8.9); PLATELET COUNT (AUTO) 107 /CMM (150-450); RDW COEFFICIENT OF VARIATION 17.2 (11.5-15.0); RED BLOOD CELL COUNT(AUTO) 3.14 MIL/uL (4.0-5.2); WHITE BLOOD COUNT (AUTO) 8.5 K/uL (4.3-11.0)
[2017-03-02 08:00] VITALS: BP 139/40
[2017-03-02 08:00] LABS: CALCIUM, SERUM 8.1 mg/dL (8.5-10.1); CARBON DIOXIDE 13 mmol/L (21-32); CHLORIDE 102 mmol/L (98-107); CREATININE 3.1 mg/dL (0.6-1.3); GLUCOSE 85 mg/dL (74-106); MAGNESIUM 2.1 mg/dL (1.8-2.4); PHOSPHORUS 5.8 mg/dL (2.5-4.9); POTASSIUM 5.3 mmol/L (3.5-5.1); SODIUM SERUM 134 mmol/L (136-145); UREA NITROGEN, BLOOD 64 mg/dL (7-18)
[2017-03-02] MEDS: BOOST GLUCOSE CONTROL VANILLA 237 ML BOX PO SCH ×2 (08:56→16:11)
[2017-03-02] MEDS: ASPIRIN EC 81 MG TABLET.DR PO SCH (10:00)
[2017-03-02] MEDS: AMIODARONE HCL 200 MG TABLET PO SCH (10:00)
[2017-03-02] MEDS: CARVEDILOL 12.5 MG TABLET PO SCH ×2 (10:00→16:12)
[2017-03-02] MEDS: DOCUSATE SODIUM LIQ 100 MG/10 ML UDC PO SCH (10:00)
[2017-03-02] MEDS: PANTOPRAZOLE 40 MG TABLET.DR PO SCH (10:00)
[2017-03-02] MEDS: LINEZOLID 600 MG TABLET PO SCH ×2 (10:00→21:00)
[2017-03-02] MEDS: LEVOTHYROXINE SODIUM 25 MCG TABLET PO SCH (10:00)
[2017-03-02 11:00] LABS: ABG BASE EXCESS -13.3 mmol/L; ABG PH 7.237 (7.350-7.450); ABG PO2 88.9 mmHg (75.0-100.0); AaDO2 23.7 mmHg; COHb 0.4 % (0.5-1.5); MetHb 0.6 % (0.0-1.5); SITE, ABG Right Radial; VENT MODE, BG ROOM AIR
[2017-03-02] MEDS: MUPIROCIN OINT 2% 22 GM TUBE SCH ×2 (11:39→21:10)
[2017-03-02 12:00] VITALS: BP 155/48
[2017-03-02] MEDS ORDERED: IV NS 0.9% 1,000 ML BAG IV ONE ×2 (12:00→18:30)
[2017-03-02] MEDS: SODIUM BICARBONATE 650 MG TABLET PO SCH ×2 (12:30→21:00)
[2017-03-02 16:00] VITALS: BP 145/52
[2017-03-02] MEDS ORDERED: IV NS 0.9% 1,000 ML IV ONE (18:30)
[2017-03-02 20:00] VITALS: BP 146/55
[2017-03-02] MEDS ORDERED: IV NS 0.9% 2,000 ML IV PRN (21:30)
[2017-03-02] MEDS ORDERED: VANCOMYCIN 1.25 GM in IV D5W 500 ML IV SCH (21:30)
[2017-03-02] MEDS: POLYETHYLENE GLYCOL 3350 17 GM POWD.PACK PO SCH (22:00)
[2017-03-02] MEDS ORDERED: VANCOMYCIN 1 GM VIAL ONE (22:09)
[2017-03-02 23:19] LABS: BASOPHILS # (AUTO) 0.2 /CMM (0.0-0.2); BASOPHILS % (AUTO) 2.3 % (0.0-2.0); HEMATOCRIT 29 % (33-45); HEMOGLOBIN 9.3 g/dL (11.5-14.8); LYMPHOCYTES # (AUTO) 0.1 /CMM (0.8-4.8); LYMPHOCYTES % (AUTO) 1.3 % (20.0-44.0); MEAN CORPUSCULAR HEMOGLOBIN 32 PG (26.0-33.0); MEAN CORPUSCULAR HGB CONC 33 g/dl (31.0-36.0); MEAN CORPUSCULAR VOLUME 98 fL (82-100); MONOCYTES % (AUTO) 0.1 % (2.0-12.0); NEUTROPHILS # (AUTO) 7.5 /CMM (1.8-8.9); NEUTROPHILS % (AUTO) 96.3 % (43.0-81.0); PLATELET COUNT (AUTO) 87 /CMM (150-450); RDW COEFFICIENT OF VARIATION 17.9 (11.5-15.0); RED BLOOD CELL COUNT(AUTO) 2.92 MIL/uL (4.0-5.2); WHITE BLOOD COUNT (AUTO) 7.8 K/uL (4.3-11.0)
[2017-03-02 23:23] LABS: CALCIUM, SERUM 7.4 mg/dL (8.5-10.1); CARBON DIOXIDE 12 mmol/L (21-32); CHLORIDE 107 mmol/L (98-107); CREATININE 2.8 mg/dL (0.6-1.3); GLUCOSE 101 mg/dL (74-106); POTASSIUM 5.2 mmol/L (3.5-5.1); SODIUM SERUM 136 mmol/L (136-145); UREA NITROGEN, BLOOD 67 mg/dL (7-18)
[2017-03-02 23:36] LABS: TROPONIN I 0.135 ng/mL (0.00-0.056)
[2017-03-02 23:37] LABS: ALANINE AMINOTRANSFERASE 77 U/L (12-78); ALBUMIN 2.2 g/dL (3.4-5.0); ALKALINE PHOSPHATASE 269 U/L (46-116); ASPARTATE AMINOTRANSFERASE 79 U/L (15-37); BILIRUBIN,TOTAL 1.8 mg/dL (0.2-1.0); MAGNESIUM 1.9 mg/dL (1.8-2.4); TOTAL PROTEIN, SERUM 5.2 g/dL (6.4-8.2)
[2017-03-02 23:42] LABS: BAND % (MANUAL) 4 % (0.0-5.0); LYMPHOCYTES % (MANUAL) 3 % (16-48); MONOCYTES % (MANUAL) 2 % (0-11.0); NEUTROPHILS % (MANUAL) 91 (42-76)
[2017-03-03 01:17] LABS: BILIRUBIN,DIRECT 1.2 mg/dL (0.0-0.2)
[2017-03-03] MEDS ORDERED: PIPERACILLIN /TAZOBACTAM 3.375 G VIAL IV ONE ×2 (01:43→05:35)
[2017-03-03] MEDS: PIPERACILLIN /TAZOBACTAM 3.375 G in IV D5W 50 ML IV SCH ×2 (01:52→06:05)
[2017-03-03] MEDS: ALBUTEROL FS 2.5 MG/3 ML VIAL.NEB NEB SCH ×6 (03:11→23:27)
[2017-03-03] MEDS: IPRATROPIUM NEB FS 0.5 MG/2.5 ML AMPUL.NEB NEB SCH ×6 (03:11→23:27)
[2017-03-03] MEDS: GABAPENTIN 100 MG CAPSULE PO SCH ×3 (04:57→21:00)
[2017-03-03] MEDS: ACETAMINOPHEN 325 MG TABLET PO SCH ×3 (04:57→21:00)
[2017-03-03] MEDS: LEVOTHYROXINE SODIUM 25 MCG TABLET PO SCH (07:30)
[2017-03-03] MEDS: PANTOPRAZOLE 40 MG TABLET.DR PO SCH (07:30)
[2017-03-03 07:31] LABS: EOSINOPHILS % (AUTO) 0.2 % (0.0-6.0); HEMATOCRIT 28 % (33-45); HEMOGLOBIN 9.4 g/dL (11.5-14.8); LYMPHOCYTES # (AUTO) 0.5 /CMM (0.8-4.8); LYMPHOCYTES % (AUTO) 5.8 % (20.0-44.0); MEAN CORPUSCULAR HEMOGLOBIN 33 PG (26.0-33.0); MEAN CORPUSCULAR HGB CONC 34 g/dl (31.0-36.0); MEAN CORPUSCULAR VOLUME 99 fL (82-100); MONOCYTES # (AUTO) 0.2 /CMM (0.1-1.30); NEUTROPHILS # (AUTO) 7.3 /CMM (1.8-8.9); PLATELET COUNT (AUTO) 75 /CMM (150-450); RDW COEFFICIENT OF VARIATION 17.6 (11.5-15.0); RED BLOOD CELL COUNT(AUTO) 2.84 MIL/uL (4.0-5.2); WHITE BLOOD COUNT (AUTO) 7.9 K/uL (4.3-11.0)
[2017-03-03 07:45] LABS: CALCIUM, SERUM 7.7 mg/dL (8.5-10.1); CARBON DIOXIDE 12 mmol/L (21-32); CHLORIDE 107 mmol/L (98-107); CREATININE 2.8 mg/dL (0.6-1.3); GLUCOSE 150 mg/dL (74-106); MAGNESIUM 2.1 mg/dL (1.8-2.4); PHOSPHORUS 5.5 mg/dL (2.5-4.9); POTASSIUM 5.4 mmol/L (3.5-5.1); SODIUM SERUM 135 mmol/L (136-145); UREA NITROGEN, BLOOD 71 mg/dL (7-18)
[2017-03-03 08:00] VITALS: BP 109/43
[2017-03-03] MEDS: BOOST GLUCOSE CONTROL VANILLA 237 ML BOX PO SCH ×2 (08:00→17:00)
[2017-03-03 08:18] LABS: BAND % (MANUAL) 19 % (0.0-5.0); LYMPHOCYTES % (MANUAL) 11 % (16-48); METAMYELOCYTES % 1 % (0-0); MONOCYTES % (MANUAL) 7 % (0-11.0); NEUTROPHILS % (MANUAL) 62 (42-76)
[2017-03-03] MEDS: ASPIRIN EC 81 MG TABLET.DR PO SCH (09:00)
[2017-03-03] MEDS: DOCUSATE SODIUM LIQ 100 MG/10 ML UDC PO SCH (09:00)
[2017-03-03] MEDS: CARVEDILOL 12.5 MG TABLET PO SCH ×2 (09:00→17:00)
[2017-03-03] MEDS: MUPIROCIN OINT 2% 22 GM TUBE SCH ×2 (09:00→21:20)
[2017-03-03] MEDS: AMIODARONE HCL 200 MG TABLET PO SCH (09:00)
[2017-03-03] MEDS ORDERED: FEE PK DOSING 1 MIN EA MC ONE (10:40)
[2017-03-03 12:00] VITALS: BP 151/59
[2017-03-03] MEDS: ASPIRIN 300 MG/SUPP.RECT RC SCH (12:00)
[2017-03-03] MEDS: PIPERACILLIN /TAZOBACTAM 2.25 G in IV D5W 50 ML IV SCH ×3 (15:46→23:19)
[2017-03-03 16:00] VITALS: BP 143/49
[2017-03-03] MEDS: Sodium Bicarbonate 150 MEQ in IV D5W 1,000 ML IV PRN (17:30)
[2017-03-03 20:00] VITALS: BP 121/60
[2017-03-03] MEDS: POLYETHYLENE GLYCOL 3350 17 GM POWD.PACK PO SCH (21:19)
[2017-03-04] VITALS (52 sets, daily range): BP systolic 69–144; BP diastolic 29–77
[2017-03-04] MEDS: IV NS 0.9% 1,000 ML IV PRN ×2 (01:33→13:16)
[2017-03-04 03:05] LABS: ABG BASE EXCESS -15.6 mmol/L; ABG OXYGEN SATURATION 91.4 % (92.0-98.5); ABG PCO2 37.8 mmHg (35.0-45.0); ABG PH 7.136 (7.350-7.450); ABG PO2 75.3 mmHg (75.0-100.0); AaDO2 108.6 mmHg; COHb 0.3 % (0.5-1.5); MetHb 0.5 % (0.0-1.5); O2Hb 90.7 % (94.0-97.0); SITE, ABG Right Radial
[2017-03-04] MEDS: IPRATROPIUM NEB FS 0.5 MG/2.5 ML AMPUL.NEB NEB SCH ×7 (03:26→23:47)
[2017-03-04] MEDS: ALBUTEROL FS 2.5 MG/3 ML VIAL.NEB NEB SCH ×7 (03:26→23:47)
[2017-03-04] MEDS: GABAPENTIN 100 MG CAPSULE PO SCH ×3 (05:00→20:44)
[2017-03-04] MEDS: ACETAMINOPHEN 325 MG TABLET PO SCH ×3 (05:00→20:45)
[2017-03-04] MEDS: PIPERACILLIN /TAZOBACTAM 2.25 G in IV D5W 50 ML IV SCH (06:08)
[2017-03-04] MEDS: LEVOTHYROXINE SODIUM 25 MCG TABLET PO SCH (07:30)
[2017-03-04] MEDS: PANTOPRAZOLE 40 MG TABLET.DR PO SCH (07:30)
[2017-03-04] MEDS: Sodium Bicarbonate 150 MEQ in IV D5W 1,000 ML IV PRN ×2 (07:50→21:39)
[2017-03-04] MEDS: BOOST GLUCOSE CONTROL VANILLA 237 ML BOX PO SCH ×2 (08:00→17:00)
[2017-03-04] MEDS ORDERED: HYDROGEL DRESSING 90 GM TUBE TP PRN (08:00)
[2017-03-04] MEDS: AMIODARONE HCL 200 MG TABLET PO SCH (08:07)
[2017-03-04] MEDS: DOCUSATE SODIUM LIQ 100 MG/10 ML UDC PO SCH (08:07)
[2017-03-04] MEDS: CARVEDILOL 12.5 MG TABLET PO SCH ×2 (08:07→18:12)
[2017-03-04 08:16] LABS: CALCIUM, SERUM 7.5 mg/dL (8.5-10.1); CARBON DIOXIDE 15 mmol/L (21-32); CHLORIDE 109 mmol/L (98-107); CREATININE 3.1 mg/dL (0.6-1.3); GLUCOSE 162 mg/dL (74-106); PHOSPHORUS 5.2 mg/dL (2.5-4.9); POTASSIUM 5.4 mmol/L (3.5-5.1); SODIUM SERUM 141 mmol/L (136-145); UREA NITROGEN, BLOOD 74 mg/dL (7-18)
[2017-03-04 08:36] LABS: ABG BASE EXCESS -16.1 mmol/L; ABG OXYGEN SATURATION 98.5 % (92.0-98.5); ABG PCO2 35.5 mmHg (35.0-45.0); ABG PH 7.139 (7.350-7.450); ABG PO2 210.8 mmHg (75.0-100.0); COHb 0.3 % (0.5-1.5); O2Hb 97.2 % (94.0-97.0); SITE, ABG Right Radial; VENT MODE, BG BIPAP 15/5
[2017-03-04] MEDS: MUPIROCIN OINT 2% 22 GM TUBE SCH ×2 (08:42→21:00)
[2017-03-04] MEDS: ASPIRIN 300 MG/SUPP.RECT RC SCH (09:00)
[2017-03-04] MEDS ORDERED: NOREPINEPHRINE 16 MG in IV D5W 500 ML IV PRN ×2 (10:00→11:00)
[2017-03-04 10:20] LABS: EOSINOPHILS % (AUTO) 0.2 % (0.0-6.0); HEMATOCRIT 25 % (33-45); HEMOGLOBIN 8.4 g/dL (11.5-14.8); LYMPHOCYTES # (AUTO) 0.3 /CMM (0.8-4.8); LYMPHOCYTES % (AUTO) 8.9 % (20.0-44.0); MEAN CORPUSCULAR HEMOGLOBIN 33 PG (26.0-33.0); MEAN CORPUSCULAR HGB CONC 34 g/dl (31.0-36.0); MEAN CORPUSCULAR VOLUME 98 fL (82-100); MONOCYTES % (AUTO) 0.7 % (2.0-12.0); NEUTROPHILS # (AUTO) 3.4 /CMM (1.8-8.9); NEUTROPHILS % (AUTO) 90.2 % (43.0-81.0); RDW COEFFICIENT OF VARIATION 17.7 (11.5-15.0); RED BLOOD CELL COUNT(AUTO) 2.54 MIL/uL (4.0-5.2); WHITE BLOOD COUNT (AUTO) 3.7 K/uL (4.3-11.0)
[2017-03-04 10:25] LABS: PLATELET COUNT (AUTO) 38 /CMM (150-450)
[2017-03-04] MEDS ORDERED: SODIUM POLYSTYRENE SULFONATE 15 G/60 ML BOTTLE NG ONE (10:30)
[2017-03-04] MEDS ORDERED: IV NS 0.9% 500 ML IV ONE ×2 (10:30→13:00)
[2017-03-04] MEDS: HYDROGEL DRESSING 90 GM TUBE TP SCH (10:31)
[2017-03-04 10:55] LABS: ABG BASE EXCESS -16.1 mmol/L; ABG OXYGEN SATURATION 90.9 % (92.0-98.5); ABG PCO2 38.7 mmHg (35.0-45.0); ABG PH 7.121 (7.350-7.450); COHb 0.3 % (0.5-1.5); MetHb 0.8 % (0.0-1.5); O2Hb 89.9 % (94.0-97.0); PEEP,BG 0 cm H2O; SITE, ABG Right Radial; VENT MODE, BG AC 18 500 50%
[2017-03-04] MEDS ORDERED: LINEZOLID RTU BAG 600 MG in PREMIX 1 EA IV SCH (11:00)
[2017-03-04] MEDS ORDERED: SODIUM BICARBONATE SYR 50 MEQ/50 ML DISP.SYRIN IV ONE (12:00)
[2017-03-04] MEDS ORDERED: ROCURONIUM BROMIDE 50 MG/5 ML IV ONE (12:20)
[2017-03-04] MEDS ORDERED: ETOMIDATE 2 MG/ML VIAL IV ONE (12:20)
[2017-03-04] MEDS: MEROPENEM 500 MG in IV NS 0.9% 50 ML IV SCH (12:56)
[2017-03-04 13:39] LABS: BAND % (MANUAL) 16 % (0.0-5.0); EOSINOPHILS % (MANUAL) 1 % (0-4); LYMPHOCYTES % (MANUAL) 10 % (16-48); METAMYELOCYTES % 2 % (0-0); MONOCYTES % (MANUAL) 3 % (0-11.0); MYELOCYTES % 1 % (0-0); NEUTROPHILS % (MANUAL) 67 (42-76)
[2017-03-04 14:54] LABS: ABG OXYGEN SATURATION 93.6 % (92.0-98.5); ABG PCO2 27.9 mmHg (35.0-45.0); ABG PH 7.273 (7.350-7.450); ABG PO2 76.4 mmHg (75.0-100.0); AaDO2 248.7 mmHg; COHb 0.3 % (0.5-1.5); MetHb 0.9 % (0.0-1.5); O2Hb 92.5 % (94.0-97.0); PEEP,BG 0 cm H2O; SITE, ABG Right Radial; VT, ABG 550 mL
[2017-03-04] MEDS: NOREPINEPHRINE 16 MG in IV D5W 500 ML IV PRN (15:07)
[2017-03-04] MEDS ORDERED: DOSE PER PHARMACY MICAFUNGIN 1 EA IV PRN (19:30)
[2017-03-04] MEDS ORDERED: MICAFUNGIN SODIUM 100 MG in IV NS 0.9% 100 ML IV SCH (21:00)
[2017-03-04] MEDS ORDERED: VANCOMYCIN 0.75 GM in IV D5W 250 ML IV SCH ×4 (23:00)
[2017-03-04] MEDS ORDERED: LORAZEPAM INJ 2 MG/ML VIAL ONE ×2 (23:14→23:18)
[2017-03-04] MEDS ORDERED: LEVETIRACETAM (500MG) 500 MG/5 ML VIAL IV ONE (23:18)
[2017-03-05] VITALS (17 sets, daily range): BP systolic 42–112; BP diastolic 12–58
[2017-03-05] MEDS ORDERED: LEVETIRACETAM (500MG) 1,000 MG in IV NS 0.9% 100 ML IV ONE ×2
[2017-03-05] MEDS ORDERED: PHENYLEPHRINE 10 MG/ML VIAL ONE (00:28)
[2017-03-05] MEDS ORDERED: PHENYLEPHRINE 80 MG in IV D5W 250 ML IV PRN (01:00)
[2017-03-05] MEDS: POLYETHYLENE GLYCOL 3350 17 GM POWD.PACK PO SCH (01:08)
[2017-03-05] MEDS: MEROPENEM 500 MG in IV NS 0.9% 50 ML IV SCH (01:08)
[2017-03-05] MEDS: ALBUTEROL FS 2.5 MG/3 ML VIAL.NEB NEB SCH ×2 (02:49→07:35)
[2017-03-05] MEDS: IPRATROPIUM NEB FS 0.5 MG/2.5 ML AMPUL.NEB NEB SCH ×2 (02:50→07:35)
[2017-03-05] MEDS ORDERED: IV NS 0.9% 1,000 ML BAG IV ONE (04:30)
[2017-03-05 04:55] LABS: BASOPHILS % (AUTO) 0.2 % (0.0-2.0); EOSINOPHILS % (AUTO) 0.6 % (0.0-6.0); HEMATOCRIT 23 % (33-45); HEMOGLOBIN 7.5 g/dL (11.5-14.8); LYMPHOCYTES # (AUTO) 0.8 /CMM (0.8-4.8); LYMPHOCYTES % (AUTO) 15.9 % (20.0-44.0); MEAN CORPUSCULAR HEMOGLOBIN 33 PG (26.0-33.0); MEAN CORPUSCULAR HGB CONC 32 g/dl (31.0-36.0); MEAN CORPUSCULAR VOLUME 102 fL (82-100); MONOCYTES % (AUTO) 0.1 % (2.0-12.0); NEUTROPHILS % (AUTO) 83.2 % (43.0-81.0); RED BLOOD CELL COUNT(AUTO) 2.28 MIL/uL (4.0-5.2); WHITE BLOOD COUNT (AUTO) 4.9 K/uL (4.3-11.0)
[2017-03-05] MEDS ORDERED: NOREPINEPHRINE 4 MG/4 ML AMPUL IV ONE (05:03)
[2017-03-05] MEDS: NOREPINEPHRINE 16 MG in IV D5W 500 ML IV PRN (05:10)
[2017-03-05] MEDS: GABAPENTIN 100 MG CAPSULE PO SCH (05:10)
[2017-03-05] MEDS: ACETAMINOPHEN 325 MG TABLET PO SCH (05:11)
[2017-03-05 05:22] LABS: CALCIUM, SERUM 6.8 mg/dL (8.5-10.1); CHLORIDE 102 mmol/L (98-107); CREATININE 3.4 mg/dL (0.6-1.3); GLUCOSE 167 mg/dL (74-106); MAGNESIUM 2.1 mg/dL (1.8-2.4); PHOSPHORUS 7.9 mg/dL (2.5-4.9); POTASSIUM 5.7 mmol/L (3.5-5.1); SODIUM SERUM 139 mmol/L (136-145); UREA NITROGEN, BLOOD 73 mg/dL (7-18)
[2017-03-05 05:25] LABS: PLATELET COUNT (AUTO) 17 /CMM (150-450)
[2017-03-05 05:54] LABS: BAND % (MANUAL) 8 % (0.0-5.0); LYMPHOCYTES % (MANUAL) 17 % (16-48); METAMYELOCYTES % 2 % (0-0); MONOCYTES % (MANUAL) 1 % (0-11.0)
[2017-03-05 05:55] LABS: MYELOCYTES % 1 % (0-0); NEUTROPHILS % (MANUAL) 71 (42-76)
[2017-03-05 06:01] LABS: CARBON DIOXIDE 5 mmol/L (21-32)
[2017-03-05] MEDS: LEVOTHYROXINE SODIUM 25 MCG TABLET PO SCH (07:30)
[2017-03-05] MEDS: PANTOPRAZOLE 40 MG TABLET.DR PO SCH (07:30)
[2017-03-05] MEDS: BOOST GLUCOSE CONTROL VANILLA 237 ML BOX PO SCH (08:00)
[2017-03-05] MEDS ORDERED: SODIUM BICARBONATE SYR 50 MEQ/50 ML DISP.SYRIN IV ONE (08:26)
[2017-03-05] MEDS ORDERED: EPINEPHRINE (1:10,000) SYRINGE 1 MG/10 ML DISP.SYRIN IVP ONE (08:26)
[2017-03-05] MEDS: ASPIRIN 300 MG/SUPP.RECT RC SCH (08:41)
[2017-03-05] MEDS: DOCUSATE SODIUM LIQ 100 MG/10 ML UDC PO SCH (08:41)
[2017-03-05] MEDS: AMIODARONE HCL 200 MG TABLET PO SCH (08:41)
[2017-03-05] MEDS: HYDROGEL DRESSING 90 GM TUBE TP SCH (09:00)
[2017-03-05] MEDS: MUPIROCIN OINT 2% 22 GM TUBE SCH (09:00)
== END 2017-03-05 08:55 | disposition expired | DRG 853 ==
LOC: ER 01:16 → TELE 15:30 → MED 02-17 12:41 → MEDSG1 02-17 22:38 → TELE-TD 03-02 22:05 → ICU 03-04 03:37
PROVIDERS: ADMIT Nurse Practitioner Acute Care; ATTEND Nurse Practitioner Acute Care
PROC: 0FT44ZZ Resection of Gallbladder, Percutaneous Endoscopic Approach (ICD-10-PCS; principal; 2017-02-21 07:34)
PROC: 05H533Z Insertion of Infusion Device into Right Subclavian Vein, Percutaneous Approach (ICD-10-PCS; 2017-02-28)
PROC: B546ZZA Ultrasonography of Right Subclavian Vein, Guidance (ICD-10-PCS; 2017-02-28)
PROC: 02HV33Z Insertion of Infusion Device into Superior Vena Cava, Percutaneous Approach (ICD-10-PCS; 2017-02-28)
PROC: B548ZZA Ultrasonography of Superior Vena Cava, Guidance (ICD-10-PCS; 2017-02-28)
PROC: 0DNU4ZZ Release Omentum, Percutaneous Endoscopic Approach (ICD-10-PCS; 2017-03-04)
PROC: 5A09357 Assistance with Respiratory Ventilation, Less than 24 Consecutive Hours, Continuous Positive Airway Pressure (ICD-10-PCS; 2017-03-04)
PROC: 5A1935Z Respiratory Ventilation, Less than 24 Consecutive Hours (ICD-10-PCS; 2017-03-04)
PROC: 0BH17EZ Insertion of Endotracheal Airway into Trachea, Via Natural or Artificial Opening (ICD-10-PCS; 2017-03-04)
PROC: 04HL33Z Insertion of Infusion Device into Left Femoral Artery, Percutaneous Approach (ICD-10-PCS; 2017-03-05)
PROC: 5A2204Z Restoration of Cardiac Rhythm, Single (ICD-10-PCS; 2017-03-05)
DX: A41.9 Sepsis, unspecified organism (principal); E43 Unspecified severe protein-calorie malnutrition; N17.0 Acute kidney failure with tubular necrosis; R65.21 Severe sepsis with septic shock; D61.818 Other pancytopenia; J96.02 Acute respiratory failure with hypercapnia; J96.01 Acute respiratory failure with hypoxia; G93.41 Metabolic encephalopathy; J18.9 Pneumonia, unspecified organism; G93.1 Anoxic brain damage, not elsewhere classified; I50.33 Acute on chronic diastolic (congestive) heart failure; K80.13 Calculus of gallbladder with acute and chronic cholecystitis with obstruction; N17.9 Acute kidney failure, unspecified; N39.0 Urinary tract infection, site not specified; Z68.1 Body mass index [BMI] 19.9 or less, adult; M80.88XA Other osteoporosis with current pathological fracture, vertebra(e), initial encounter for fracture; E87.2 Acidosis; Z51.5 Encounter for palliative care; Z66 Do not resuscitate; D69.59 Other secondary thrombocytopenia; E11.22 Type 2 diabetes mellitus with diabetic chronic kidney disease; E11.65 Type 2 diabetes mellitus with hyperglycemia; D69.6 Thrombocytopenia, unspecified; E66.01 Morbid (severe) obesity due to excess calories; I48.0 Paroxysmal atrial fibrillation; E86.0 Dehydration; D63.8 Anemia in other chronic diseases classified elsewhere; I11.0 Hypertensive heart disease with heart failure; E87.6 Hypokalemia; E78.5 Hyperlipidemia, unspecified; I25.10 Atherosclerotic heart disease of native coronary artery without angina pectoris; K66.0 Peritoneal adhesions (postprocedural) (postinfection); K21.9 Gastro-esophageal reflux disease without esophagitis; E03.9 Hypothyroidism, unspecified; G89.18 Other acute postprocedural pain; Z96.642 Presence of left artificial hip joint; Z98.61 Coronary angioplasty status; Z79.82 Long term (current) use of aspirin; Z79.84 Long term (current) use of oral hypoglycemic drugs; Z79.899 Other long term (current) drug therapy; Z95.1 Presence of aortocoronary bypass graft; Z86.73 Personal history of transient ischemic attack (TIA), and cerebral infarction without residual deficits; B96.89 Other specified bacterial agents as the cause of diseases classified elsewhere; I12.9 Hypertensive chronic kidney disease with stage 1 through stage 4 chronic kidney disease, or unspecified chronic kidney disease; N18.9 Chronic kidney disease, unspecified; Z22.322 Carrier or suspected carrier of Methicillin resistant Staphylococcus aureus; N28.89 Other specified disorders of kidney and ureter; I70.0 Atherosclerosis of aorta; L89.159 Pressure ulcer of sacral region, unspecified stage; I67.2 Cerebral atherosclerosis; B95.2 Enterococcus as the cause of diseases classified elsewhere
CPT/HCPCS: 31720; 36415; 36600; 70450-TC; 71045-TC; 74018; 76770-TC; 80048-TC; 80053-TC; 80061-TC; 80076-TC; 80202-TC; 81000-TC; 82232; 82248-TC; 82570-TC; 82728-TC; 82746; 82784; 82803-TC; 82962-TC; 83540-TC; 83605-TC; 83615-TC; 83690-TC; 83735-TC; 84100-TC; 84155; 84155-TC; 84165; 84300-TC; 84443-TC; 84484-TC; 85025-TC; 86334; 87040-TC; 87070-TC; 87081-TC; 87086-TC; 87186-TC; 88304-TC; 88305-TC; 93307-TC; 93930-TC; 94002-TC; 94003-TC; 94762-TC; 94799-TC; 95819-TC; 97110-TC; 97530-TC; A4216; A4606; A6209; A6248; A6402; A6403; C1751; J0171; J1100; J1940; J1953; J2020; J2060; J2185; J2248; J2370; J2405; J2543; J2704; J2710; J3010; J3370; J3475; J3490; J7030; J7040; J7042; J7050; J7060; J7070; P9047; Z7610